=== PATIENT | male | born 1970 | race Caucasian/White ===

== ENCOUNTER 2016-12-11 11:51 | Inpatient (IN) | payer MEDICAID ==
[~2016-12-11] VITALS: Ht 175.3 cm; Wt 82.0 kg
[~2016-12-11 11:51] MED LIST: ADVAI100I PO; ALBU1AER INH; LANTUSP SQ; LISI2.5T3 PO; NOVOLOGP2 SQ
[2016-12-11 11:55] VITALS: BP 175/85; PULSE 104; RESP 18; O2SAT 92
--- NOTE | 2016-12-11 12:13 | PD ---
HPI Chief Complaint: Respiratory Distress Time Seen by Provider: 12:01 Travel History International Travel<30 days: No Contact w/Intl Traveler<30days: No Traveled to known affect area: No History of Present Illness HPI 46yo M with PMH of type 1 DM, HTN presents to the ED with c/o sob for 5 days. Associated with coughing and had fever 101F 3 days ago. Pt also states he is nauseous and has abdominal pain distension. States he has not had a bowel movement in 3 days and only started passing gas. Denies any chest pain, vomiting, testicular pain, dysuria, penile discharge or rash. States he always has lower extremity edema. Went to PMD's office today and sent here. Pt was a former smoker and used to use advair but said did not need it for over 1.5 years. Denies any history of PE, DVT, recent travel, recent surgery. PSH include appendectomy. PFSH Past Medical History Diabetes: Yes Patient Takes Glucophage: No Past Surgical History Appendectomy: Yes Social History Alcohol Use: No Tobacco Use: Yes Substance Use: No Allergies-Medications (Allergen,Severity, Reaction): Coded Allergies: penicillin G (Unverified Adverse Reaction, Severe, WELTS, 11/19/16) Reported Meds & Prescriptions Reported Meds & Active Scripts Active Reported Lutein Unknown Strength Cap 1 Cap PO DAILY Amlodipine (Amlodipine Besylate) 5 Mg Tab 5 Mg PO DAILY Omeprazole 20 Mg Tab 40 Mg PO DAILY Gabapentin 600 Mg Tab 600 Mg PO TID Hydrochlorothiazide 25 Mg Tab 25 Mg PO DAILY Lantus Inj (Insulin Glargine) 1,000 Unit/10 Ml Vial 40 Units SQ HS Novolog Inj (Insulin Aspart) 100 Unit/Ml Inj 30 Units SQ TIDAC Review of Systems Except as stated in HPI: all other systems reviewed are Neg Physical Exam Narrative GENERAL: 46yo M in moderate distress. SKIN: Focused skin assessment warm/dry. HEAD: Atraumatic. Normocephalic. EYES: Pupils equal and round. No scleral icterus. No injection or drainage. ENT: No nasal bleeding or discharge. Mucous membranes pink and moist. NECK: Trachea midline. No JVD. CARDIOVASCULAR: Tachycardic. No murmur appreciated. RESPIRATORY: + accessory muscle use. Clear to auscultation. Breath sounds equal bilaterally. Hypoxic in the 80s on RA. GASTROINTESTINAL: Abdomen softly distended. +Epigastric, RUQ, RLQ. MUSCULOSKELETAL: No obvious deformities. No clubbing. No cyanosis. No edema. NEUROLOGICAL: Awake and alert. No obvious cranial nerve deficits. Motor grossly within normal limits. Normal speech. PSYCHIATRIC: Appropriate mood and affect; insight and judgment normal. Data Data Last Documented VS Vital Signs Date Time Temp Pulse Resp B/P (MAP) Pulse Ox O2 Delivery O2 Flow Rate FiO2 12/11/16 12:04 95 Nasal Cannula 4.00 12/11/16 12:02 96 22 12/11/16 11:55 175/85 (115) Orders Orders Complete Blood Count With Diff (12/11/16 12:02) Basic Metabolic Panel (Bmp) (12/11/16 12:02) B-Type Natriuretic Peptide (12/11/16 12:02) Act Partial Throm Time (Ptt) (12/11/16 12:02) Prothrombin Time / Inr (Pt) (12/11/16 12:02) Troponin I (12/11/16 12:02) Arterial Blood Gas (Abg) (12/11/16 12:02) Urinalysis - C+S If Indicated (12/11/16 12:02) Blood Culture (12/11/16 12:02) Iv Access Insert/Monitor (12/11/16 12:02) Electrocardiogram (12/11/16 12:02) Ecg Monitoring (12/11/16 12:02) Oximetry (12/11/16 12:02) Oxygen Administration (12/11/16 12:02) Chest, Single Ap (12/11/16 12:02) Sodium Chloride 0.9% Flush (Ns Flush) (12/11/16 12:15) Lactic Acid Sepsis Protocol (12/11/16 12:03) Methylprednisolone So Succ Inj (Solumedr (12/11/16 12:15) Albuterol-Ipratropium Neb (Duoneb Neb) (12/11/16 12:15) Hepatic Functional Panel (12/11/16 12:15) Lipase (12/11/16 12:15) Ct Abd/Pel W/O Iv Contrast (12/11/16 ) Furosemide Inj (Lasix Inj) (12/11/16 13:45) Potassium Chloride (Kcl) (12/11/16 13:45) Echo 2d Comp With Doppler (12/11/16 ) Consult Cardiology (12/11/16 ) Admit Order (Ed Use Only) (12/11/16 13:56) Labs Laboratory Tests Test 12/11/16 12:15 12/11/16 12:25 White Blood Count 12.1 TH/MM3 Red Blood Count 2.70 MIL/MM3 Hemoglobin 8.7 GM/DL Hematocrit 24.9 % Mean Corpuscular Volume 92.0 FL Mean Corpuscular Hemoglobin 32.1 PG Mean Corpuscular Hemoglobin Concent 34.9 % Red Cell Distribution Width 12.3 % Platelet Count 300 TH/MM3 Mean Platelet Volume 9.1 FL Neutrophils (%) (Auto) 76.6 % Lymphocytes (%) (Auto) 10.0 % Monocytes (%) (Auto) 8.4 % Eosinophils (%) (Auto) 4.3 % Basophils (%) (Auto) 0.7 % Neutrophils # (Auto) 9.3 TH/MM3 Lymphocytes # (Auto) 1.2 TH/MM3 Monocytes # (Auto) 1.0 TH/MM3 Eosinophils # (Auto) 0.5 TH/MM3 Basophils # (Auto) 0.1 TH/MM3 CBC Comment DIFF FINAL Differential Comment Prothrombin Time 9.7 SEC Prothromb Time International Ratio 0.9 RATIO Activated Partial Thromboplast Time 30.5 SEC Blood Urea Nitrogen 76 MG/DL Creatinine 5.32 MG/DL Random Glucose 170 MG/DL Total Protein 7.4 GM/DL Albumin 2.5 GM/DL Calcium Level 8.8 MG/DL Alkaline Phosphatase 84 U/L Aspartate Amino Transf (AST/SGOT) 19 U/L Alanine Aminotransferase (ALT/SGPT) 37 U/L Total Bilirubin 0.3 MG/DL Direct Bilirubin 0.1 MG/DL Sodium Level 131 MEQ/L Potassium Level 3.4 MEQ/L Chloride Level 98 MEQ/L Carbon Dioxide Level 20.9 MEQ/L Anion Gap 12 MEQ/L Estimat Glomerular Filtration Rate 12 ML/MIN Lactic Acid Level 1.0 mmol/L Indirect Bilirubin 0.2 MG/DL Troponin I 2.04 NG/ML B-Type Natriuretic Peptide 1053 PG/ML Lipase 135 U/L Blood Gas Puncture Site RT RADIAL Blood Gas Patient Temperature 98.6 Blood Gas HCO3 19 mmol/L Blood Gas Base Excess -5.3 mmol/L Blood Gas Oxygen Saturation 90 % Arterial Blood pH 7.35 Arterial Blood Partial Pressure CO2 36 mmHg Arterial Blood Partial Pressure O2 68 mmHG Arterial Blood Oxygen Content 10.1 Vol % Arterial Blood Carboxyhemoglobin 2.1 % Arterial Blood Methemoglobin 0.9 % Blood Gas Hemoglobin 7.9 G/DL Oxygen Delivery Device NASAL CANNULA Blood Gas Liter Flow 4 L/M MDM Medical Decision Making Medical Screen Exam Complete: Yes Emergency Medical Condition: Yes Interpretation(s) EKG: NSR 93bpm. Normal axis. ST depression diffusely. Differential Diagnosis Pneumonia vs. ACS vs. PE vs. COPD exacerbation vs. CHF Narrative Course 46yo M with type 1 DM and HTN here with c/o sob for a few days. Pt arrived and is hypoxic saturating in the 80s on room air. Pt saturating 93-94% on 4 L NC. Labs reviewed, mild leukocytosis at 12.1. H/H low at 8.7/24.9. No prior to compare. Troponin is elevated at 2.04. Pt has no chest pain. BNP elevated at 1053. Discussed with principal planner Dr. Bill who agrees with lasix. Pt states he feels better on the 4L and does not want BIPAP at this time. Lactic acid normal at 1.0. BUN/creatinine elevated at 76/5.32. Pt denies prior history of renal failure and has no prior lab to compare to. States he last urinated at 10 :30am. Discussed with dental floss packer Dr. Bess who will come evaluate the patient. Discussed with electroplater automatic Dr. Verdugo who accepted pt to his service. CTa/p showed moderately large bilateral pleural effusions. Kidneys are normal. CXR showed mild cardiomegaly and pulmonary edema. Critical Care Narrative Aggregate critical care time was 60 minutes. Time to perform other separately billable procedures was not included in the critical care time. My time did not include minutes spent treating any other patients simultaneously or on activities that did not directly contribute to the patient's treatment. The services I provided to this patient were to treat and/or prevent clinically significant deterioration that could result in: cardiovascular collapse or . I provided critical care services requiring my management, as noted below: Chart data review, documentation time, medication orders and management, vital sign assessments/reviewing monitor data, ordering and reviewing lab tests, ordering and interpreting/reviewing x-rays and diagnostic studies, care of the patient and discussion of the patient with the admitting physicians. Diagnosis Primary Impression: Acute renal failure Qualified Codes: N17.9 - Acute kidney failure, unspecified Additional Impression: CHF (congestive heart failure) Qualified Codes: I50.9 - Heart failure, unspecified Admitting Information Admitting Physician Requests: Shobha Calero DO Dec 11, 2016 12:13
[2016-12-11] MEDS ORDERED: methylPREDNISolone SOD SUCC 125 MG/2 ML VIAL IVP ONE (12:15)
[2016-12-11] MEDS ORDERED: SODIUM CHLORIDE 0.9% FLUSH 10 ML FLUSH IVF PRN (12:15)
[2016-12-11] MEDS: RESP: ALBUTEROL 2.5 MG/IPRATROPIUM 0.5 MG NEB (SCH) INH (12:28)
[2016-12-11 12:35] LABS: BLOOD GAS BASE EXCESS -5.3 mmol/L (-2-2); BLOOD GAS CARBOXYHEMOGLOBIN 2.1 % (0-4); BLOOD GAS HCO3 19 mmol/L (22-26); BLOOD GAS METHEMOGLOBIN 0.9 % (0-2); BLOOD GAS O2 HGB SATURATION 90 % (90-100); BLOOD GAS OXYGEN CONTENT 10.1 Vol % (12.0-20.0); BLOOD GAS PCO2 36 mmHg (38-42); BLOOD GAS PO2 68 mmHG (61-120); BLOOD GAS TOTAL HGB 7.9 G/DL (12.0-16.0); CRITICAL VALUE NO; OXYGEN DEVICE NASAL CANNULA; TEMP CORR TO 98.6
[2016-12-11 12:36] LABS: DRAW SITE RT RADIAL; LITER FLOW 4 L/M; NUMBER OF ARTERIAL PUNCTURES 1; STAT YES; ULNAR PULSE PRESENT
[2016-12-11 12:45] LABS: APTT (PATIENT) 30.5 SEC (24.3-30.1); INTERNATIONAL NORMALIZED RATIO 0.9 RATIO; PROTHROMBIN TIME - PATIENT 9.7 SEC (9.8-11.6)
[2016-12-11 12:53] LABS: AUTOMATED NEUTROPHIL # 9.3 TH/MM3 (1.8-7.7); BASOPHIL # 0.1 TH/MM3 (0-0.2); BASOPHIL % 0.7 % (0.0-2.0); EOSINOPHIL # 0.5 TH/MM3 (0-0.4); EOSINOPHIL % 4.3 % (0.0-4.0); HEMATOCRIT 24.9 % (39.0-51.0); HEMO FLAGS DIFF FINAL; LYMPHOCYTE # 1.2 TH/MM3 (1.0-4.8); MEAN CORPUSCULAR HEMOGLOBIN 32.1 PG (27.0-34.0); MEAN CORPUSCULAR HGB CONC 34.9 % (32.0-36.0); MONO % 8.4 % (0.0-8.0); NEUT % 76.6 % (16.0-70.0); PLATELET COUNT 300 TH/MM3 (150-450); RED CELL DISTRIBUTION WIDTH 12.3 % (11.6-17.2); WHITE BLOOD COUNT 12.1 TH/MM3 (4.0-11.0)
[2016-12-11 12:54] LABS: BICARBONATE 20.9 MEQ/L (21.0-32.0); POTASSIUM 3.4 MEQ/L (3.5-5.1)
[2016-12-11 12:58] LABS: INDIRECT BILIRUBIN 0.2 MG/DL (0.0-0.8); TOTAL BILIRUBIN ADULT 0.3 MG/DL (0.2-1.0)
--- NOTE | 2016-12-11 12:58 | RADRPT ---
EXAM DATE/TIME: 12/11/2016 12:12 [facility] COMPARISON: No previous studies available for comparison. INDICATIONS : Short of breath. Pt. complains of difficulty breathing and had a fever for a few days. MEDICAL HISTORY : None. SURGICAL HISTORY : None. ENCOUNTER: Initial ACUITY: 4 - 6 days PAIN SCORE: 0/10 LOCATION: Bilateral chest FINDINGS: Bibasilar patchiness is noted consistent with infiltrate and/or pulmonary edema. Clinical correlatio n is recommended. The heart is mildly prominent. CONCLUSION: 1. Bibasilar patchiness consistent with infiltrate and/or pulmonary edema. Clinical correlation is recommended. 2. Mild cardiomegaly. Rui Garduno MD on December 11, 2016 at 12:54 Board Certified Radiologist. This report was verified electronically.
[2016-12-11] MEDS ORDERED: FUROSEMIDE 40 MG/4 ML VIAL IV PUSH ONE (13:45)
[2016-12-11] MEDS ORDERED: POTASSIUM CHLORIDE 20 MEQ CONTROLLED RELEASE TAB PO ONE (13:45)
[2016-12-11] MEDS ORDERED: MAGNESIUM HYDROXIDE SUSP 30 ML CUP PO PRN (14:00)
[2016-12-11] MEDS ORDERED: BISACODYL 10 MG SUPP RECTAL PRN (14:00)
[2016-12-11] MEDS ORDERED: LACTULOSE SYRUP 20 GM/30 ML CUP PO PRN (14:00)
[2016-12-11] MEDS ORDERED: RESP: ALBUTEROL 2.5 MG/IPRATROPIUM 0.5 MG NEB (PRN) INH (14:00)
[2016-12-11] MEDS ORDERED: MISCELLANEOUS NURSING INFORMATION XX SCH (14:00)
[2016-12-11] MEDS ORDERED: CHLORHEXIDINE GLUCONATE 2 % 1 PACK (2 CLOTHS) TOP PRN (14:00)
[2016-12-11] MEDS ORDERED: SENNOSIDES 8.6 MG TAB PO PRN (14:00)
[2016-12-11] MEDS ORDERED: FUROSEMIDE 100 MG/10 ML VIAL IV PUSH ONE (14:30)
--- NOTE | 2016-12-11 14:35 | RADRPT ---
EXAM DATE/TIME: 12/11/2016 13:44 [facility] COMPARISON: No previous studies available for comparison. INDICATIONS : Abdominal pain and distention. ORAL CONTRAST: No oral contrast ingested. RADIATION DOSE: 9.96 CTDIvol (mGy) MEDICAL HISTORY : Diabetes mellitus type 2. SURGICAL HISTORY : None. ENCOUNTER: Initial ACUITY: 1 day PAIN SCALE: 7/10 LOCATION: diffuse abdomen. TECHNIQUE: Volumetric scanning of the abdomen and pelvis was performed. Using automated exposure control and ad justment of the mA and/or kV according to patient size, radiation dose was kept as low as reasonably achievable to obtain optimal diagnostic quality images. DICOM format image data is available electro nically for review and comparison. FINDINGS: LOWER LUNGS: Moderate-sized bilateral pleural effusions measure up to 5 cm. There is associated compressive atele ctasis of the lower lungs. LIVER: Homogeneous density without lesion for noncontrast technique. There is no dilation of the biliary tr ee. No calcified gallstones. SPLEEN: Normal size without lesion. PANCREAS: Within normal limits. KIDNEYS: Normal in size and shape. There is no mass, stone, or hydronephrosis. ADRENAL GLANDS: Within normal limits. VASCULAR: There is no aortic aneurysm. BOWEL/MESENTERY: No dilated loops of small or large bowel. No evidence of free fluid." Adjacent to the cecum suggest s prior appendectomy. ABDOMINAL WALL: Within normal limits. RETROPERITONEUM: There is no lymphadenopathy. Retroaortic left renal vein. BLADDER: No wall thickening or mass. REPRODUCTIVE: Within normal limits. INGUINAL: There is no lymphadenopathy or hernia. MUSCULOSKELETAL: Within normal limits for patient age. CONCLUSION: Moderately large bilateral pleural effusions and compressive atelectasis lower lungs. John Maya MD on December 11, 2016 at 14:30 Board Certified Radiologist. This report was verified electronically.
--- NOTE | 2016-12-11 14:41 | PD.CONS ---
[facility] Service Nephrology Consult Requested By Dr. Verdugo Reason for Consult [facility] Primary Care Physician Meyr Antony MD History of Present Illness Patient is a 46 year old male with history of insulin-dependent diabetes since age 20, currently on Lantus insulin 40 units at night and Humalog he stated that he developed increasing shortness of breath since last week went to see the physician in today he was advised to come to the emergency, he has not passed urine since this morning he has stated that only a few drops of urine came out when he tried, his creatinine is 5.32 there are no old records to compare, patient gives no history of kidney disease in the past states that he has seen a physician 1 week ago. Review of Systems Constitutional: COMPLAINS OF: Fatigue Respiratory: COMPLAINS OF: Shortness of breath Cardiovascular: COMPLAINS OF: Dyspnea on Exertion, Lower Extremity Edema Musculoskeletal: COMPLAINS OF: Joint pain Past Family Social History Allergies: Coded Allergies: penicillin G (Unverified Adverse Reaction, Severe, WELJASON, 11/19/16) Past Medical History Insulin-dependent diabetes, Hypertension Past Surgical History Appendectomy Reported Medications Reported Meds & Active Scripts Active Reported Proair Hfa (Albuterol Sulfate) 8.5 Gm Aero 0 INH BID PRN UNKNOWN DOSE Advair Diskus 100/50 (Salmeterol Xinafoate/Fluticasone) Salmeterol/Fluticasone 50/100mcg Inh 1 Inhalation PO BID PRN Lisinopril 2.5 Mg Tab Unknown Dose PO DAILY Lantus (Insulin Glargine) 100 Units/Ml Inj 40 Units SQ HS Novolog (Insulin Aspart) 100 Units/Ml Inj Unknown Dose SQ DIRECTED Active Ordered Medications Current Medications Medications (Trade) Dose Ordered Sig/Tammy Route Start Time Stop Time Status Last Admin (NS Flush) 2 ml UNSCH PRN IVF 12/11/16 12:15 (Protonix Inj) 40 mg DAILY IV 12/12/16 09:00 (Duoneb Neb) 1 ampule Q2HR NEB PRN INH 12/11/16 14:00 Miscellaneous Information 1 Q361D XX 12/11/16 14:00 (Chlorhexidine 2% Cloth) 3 pack Taper DAILY@04 TOP 12/12/16 04:00 12/08/17 03:59 (Chlorhexidine 2% Cloth) 3 pack UNSCH PRN TOP 12/11/16 14:00 (Marie-Colace) 1 tab BID PO 12/11/16 21:00 (Milk Of Magnesia Liq) 30 ml Q12H PRN PO 12/11/16 14:00 (Senokot) 17.2 mg Q12H PRN PO 12/11/16 14:00 (Dulcolax Supp) 10 mg DAILY PRN RECTAL 12/11/16 14:00 (Lactulose Liq) 30 ml DAILY PRN PO 12/11/16 14:00 (Aspirin Chew) 81 mg DAILY CHEW 12/11/16 14:15 (Lasix Inj) 80 mg ONCE ONCE IV PUSH 12/11/16 14:30 12/11/16 14:31 UNV (Lasix Inj) 40 mg BID@,18 IV PUSH 12/12/16 09:00 UNV Family History Noncontributory Social History Admits to smoking Denies alcohol use Physical Exam Vital Signs Vital Signs Date Time Temp Pulse Resp B/P (MAP) Pulse Ox O2 Delivery O2 Flow Rate FiO2 12/11/16 12:04 95 Nasal Cannula 4.00 12/11/16 12:02 96 22 95 Nasal Cannula 4.00 12/11/16 11:55 104 18 175/85 (115) 92 Physical Exam GENERAL: Well-nourished, well-developed patient. SKIN: Warm and dry. HEAD: Normocephalic. EYES: No scleral icterus. No injection or drainage. NECK: Supple, trachea midline. No JVD or lymphadenopathy. CARDIOVASCULAR: Regular rate and rhythm without murmurs, gallops, or rubs. RESPIRATORY: Breath sounds diminished at bases with fine crepitations GASTROINTESTINAL: Abdomen soft, non-tender, nondistended. EXTREMITIES: No cyanosis, or edema. NEUROLOGICAL: Awake, alert, and oriented x 3. Non-focal. Laboratory Laboratory Tests Test 12/11/16 12:15 12/11/16 12:25 White Blood Count 12.1 Red Blood Count 2.70 Hemoglobin 8.7 Hematocrit 24.9 Mean Corpuscular Volume 92.0 Mean Corpuscular Hemoglobin 32.1 Mean Corpuscular Hemoglobin Concent 34.9 Red Cell Distribution Width 12.3 Platelet Count 300 Mean Platelet Volume 9.1 Neutrophils (%) (Auto) 76.6 Lymphocytes (%) (Auto) 10.0 Monocytes (%) (Auto) 8.4 Eosinophils (%) (Auto) 4.3 Basophils (%) (Auto) 0.7 Neutrophils # (Auto) 9.3 Lymphocytes # (Auto) 1.2 Monocytes # (Auto) 1.0 Eosinophils # (Auto) 0.5 Basophils # (Auto) 0.1 CBC Comment DIFF FINAL Differential Comment Prothrombin Time 9.7 Prothromb Time International Ratio 0.9 Activated Partial Thromboplast Time 30.5 Blood Urea Nitrogen 76 Creatinine 5.32 Random Glucose 170 Total Protein 7.4 Albumin 2.5 Calcium Level 8.8 Alkaline Phosphatase 84 Aspartate Amino Transf (AST/SGOT) 19 Alanine Aminotransferase (ALT/SGPT) 37 Total Bilirubin 0.3 Direct Bilirubin 0.1 Sodium Level 131 Potassium Level 3.4 Chloride Level 98 Carbon Dioxide Level 20.9 Anion Gap 12 Estimat Glomerular Filtration Rate 12 Lactic Acid Level 1.0 Indirect Bilirubin 0.2 Troponin I 2.04 B-Type Natriuretic Peptide 1053 Lipase 135 Blood Gas Puncture Site RT RADIAL Blood Gas Patient Temperature 98.6 Blood Gas HCO3 19 Blood Gas Base Excess -5.3 Blood Gas Oxygen Saturation 90 Arterial Blood pH 7.35 Arterial Blood Partial Pressure CO2 36 Arterial Blood Partial Pressure O2 68 Arterial Blood Oxygen Content 10.1 Arterial Blood Carboxyhemoglobin 2.1 Arterial Blood Methemoglobin 0.9 Blood Gas Hemoglobin 7.9 Oxygen Delivery Device NASAL CANNULA Blood Gas Liter Flow 4 Date/Time Source Procedure Growth Status 12/11/16 12:15 Blood Peripheral Aerobic Blood Culture Pending Received 12/11/16 12:15 Blood Peripheral Anaerobic Blood Culture Pending Received Result Diagram: 12/11/16 1215 12/11/16 1215 Assessment and Plan Problem List: (1) Acute renal failure ICD Codes: N17.9 - Acute kidney failure, unspecified Status: Acute Plan: Patient has no knowledge of kidney issues he was taking ibuprofen on an as-needed basis to 200 mg tablets every other day , He has advanced kidney disease with albumin level is low there is a component of chronic kidney disease due to diabetic nephropathy However he is not aware of renal failure I therefore chose to give him Lasix obtain a kidney ultrasound TANISHA C3-C4 urine proteins Hepatitis profile Follow electrolytes Avoid nephrotoxic agent (2) Diabetes ICD Codes: E11.9 - Type 2 diabetes mellitus without complications Plan: Continue to monitor blood glucose (3) CHF (congestive heart failure) ICD Codes: I50.9 - Heart failure, unspecified Plan: Lasix 80 mg IV ordered him on Lasix 40 mg every 12 hours and monitor intake and output and BMP Problem Qualifiers (1) Diabetes: Edmund Bess MD Dec 11, 2016 14:41
[2016-12-11] MEDS: ASPIRIN 81 MG CHEW TAB CHEW SCH (15:14)
--- NOTE | 2016-12-11 15:30 | RADRPT ---
EXAM DATE/TIME: 12/11/2016 14:33 [facility] COMPARISON: No previous studies available for comparison. INDICATIONS : Increased BUN/Creatnine. MEDICAL HISTORY : Diabetes. SURGICAL HISTORY : Appendectomy. ENCOUNTER: Initial ACUITY: 2 days PAIN SCORE: 2/10 LOCATION: Bilateral flank MEASUREMENTS: RIGHT KIDNEY: 11.4 x 5.2 x 6.7 cm LEFT KIDNEY: 12.0 x 5.4 x 6.6 cm FINDINGS: Right pleural effusion is present. RIGHT KIDNEY: Renal cortex is normal in thickness and echotexture. No hydronephrosis, stone, or mass. LEFT KIDNEY: Renal cortex is normal in thickness and echotexture. No hydronephrosis, stone, or mass. BLADDER: Within normal limits given the degree of distension. CONCLUSION: 1. Normal sonographic appearance the kidneys. 2. Right pleural effusion. John Maya MD on December 11, 2016 at 15:27 Board Certified Radiologist. This report was verified electronically.
[2016-12-11 15:31] LABS: BLOOD, URINE TRACE (NEG); COMMENT (UR) CULT NOT INDICATED; CULTURE IF INDICATED CULT NOT INDICATED; GLUCOSE,URINE 70 mg/dL (NEG); KETONE, URINE NEG (NEG); NITRITE,URINE NEG (NEG); SQUAMOUS EPITHELIAL CELL URINE <1 /hpf (0-5); URINE COLOR LIGHT-YELLOW (YELLW/STRAW)
--- NOTE | 2016-12-11 15:33 | ECHRPT ---
Indication: heart failure CONCLUSIONS Normal left ventricular size. Mild concentric left ventricular hypertrophy. The left ventricular systolic function is severely reduced with an estimated ejection fraction in th e range of 30-35%. Apical hypokinesis Trace mitral valve regurgitation. The estimated pulmonary arterial pressure is 30 mmHg. BP: / HR: Rhythm: Technical Quality:Good FINDINGS LEFT VENTRICLE Normal left ventricular size. Mild concentric left ventricular hypertrophy. The left ventricular systolic function is severely reduced with an estimated ejection fraction in th e range of 30-35%. RIGHT VENTRICLE Normal right ventricular size and systolic function. LEFT ATRIUM The left atrial size is normal. RIGHT ATRIUM The right atrial size is normal. ATRIAL SEPTUM Normal atrial septal thickness without atrial level shunting by limited color doppler interrogation. AORTA The aortic root and proximal ascending aorta are normal in size on limited imaging. MITRAL VALVE Trace mitral valve regurgitation. AORTIC VALVE Trileaflet aortic valve. No aortic valve stenosis or regurgitation. TRICUSPID VALVE The estimated pulmonary arterial pressure is 30 mmHg. PULMONARY VALVE The pulmonary valve is not well visualized. VESSELS The inferior vena cava is normal in size. PERICARDIUM No pericardial effusion. Alex Lewis MD (Electronically Signed) Final Date:11 December 2016 15:32
--- NOTE | 2016-12-11 16:22 | PD.PROCEDR ---
Procedure Note Procedure Procedure Notes: Thoracentesis Indication: Large right sided pleural effusion A time-out was completed verifying correct patient, procedure, site, positioning , and special equipment if applicable. The patients right side was prepped and draped in a sterile manner after the appropriate infiltration level was confirmed by ultrasound. 1% lidocaine was used anesthetize the surrounding skin. A 10-blade scalpel used to make the incision. The thoracentesis Angiocath was then introduced without difficulty and needle was removed. Catheter was connected to Vacutainer bottle and 1000 ml (1L) of blood tinged free flowing fluid was removed. A post-procedure chest x-ray was ordered and the fluid will be sent for several studies. Estimated Blood Loss: <2 ml The patient tolerated the procedure well and there were no immediate complications. Paulette Verdugo MD Dec 11, 2016 16:22
[2016-12-11] MEDS ORDERED: MORPHINE SULFATE 4 MG/ML INJ IV PUSH PRN (16:30)
[2016-12-11 16:34] VITALS: BP 160/89; PULSE 97; RESP 18; TEMP 98.2; O2SAT 94
--- NOTE | 2016-12-11 16:35 | HHI.HP ---
[facility] Service Critical Care Medicine Primary Care Physician Mery Antony MD Admission Diagnosis New onset CHF, acute kidney injury Diagnosis: (1) Acute systolic (congestive) heart failure Diagnosis: Principal (2) NSTEMI (non-ST elevated myocardial infarction) Diagnosis: Principal (3) Acute hypoxemic respiratory failure Diagnosis: Principal (4) Acute kidney failure Diagnosis: Principal (5) Sepsis Diagnosis: Principal (6) Large bilateral pleural effusions Diagnosis: Principal (7) Hypokalemia Diagnosis: Principal (8) Hyponatremia Diagnosis: Principal (9) Microcytic anemia Diagnosis: Secondary (10) Type 1 diabetes Diagnosis: Secondary (11) Ischemic cardiomyopathy Diagnosis: Secondary Chief Complaint: Severe shortness of breath, systolic heart failure NSTEMI Travel History International Travel<30 Days: No Contact w/Intl Traveler <30 Da: No Traveled to Known Affected Are: No Sepsis Criteria SIRS Criteria (2 or more): RR > 20 or PaCO2 < 32, WBC > 50764, < 4000 or > 10 % bands Sepsis Criteria (SIRS+source): Infect source susp/known Severe Sepsis (+one): Hypoperfusion, Acute Oliguria/Renal Failure Criteria Outcome: Meets severe sepsis criteria History of Present Illness Patient is a 46-year-old male with past medical history significant for type 1 diabetes, hypertension who presented to the emergency department with worsening shortness of breath for the last 5 days and subjective fever of 101 about 3 days ago, He was also complaining about abdominal pain and distention along with nausea. He initially went to his doctor's office and was referred to the emergency department. In the ED patient was hypoxic saturating in the 80s on room air, improved to 93% on 4 L NC. His lab work showed WBC count 12.1. H/H 8.7/24.9. Troponin is elevated at 2.04, BNP elevated at 1053. BUN/creatinine elevated at 76/5.32. CXR showed mild cardiomegaly and pulmonary edema. Critical care medicine was consulted for admission. Patient received 80 mg of Lasix in the ED. I evaluated the patient in the ED. He is in moderate respiratory distress using accessory muscles. I did a bedside echo which showed ejection fraction approximately 30-35%. Pleural ultrasound showed moderate to large bilateral pleural effusions. I have discussed with Dr. Bill, I will start patient on IV heparin, Coreg and aspirin. I performed a bedside thoracentesis on the right side with immediate improvement in clinical symptoms, and about 1 L of blood- tinged pleural fluid was removed. I also discussed with Dr. Bess. I will discontinue the scheduled Lasix and started on Bumex infusion, after post thoracentesis chest x-ray shows some worsening of pulmonary edema. Patient will need a cardiac catheterization once he is more stable from respiratory standpoint. We'll start patient on BiPAP to reduce his work of breathing Review of Systems ROS Limitations: Clinical Condition (tachypneic, hsort of breath limiting review of systems), Other Past Family Social History Allergies: Coded Allergies: penicillin G (Unverified Adverse Reaction, Severe, WELTS, 11/19/16) Past Medical History Type 1 diabetes Hypertension Past Surgical History History of appendectomy Reported Medications Proair Hfa (Albuterol Sulfate) 8.5 Gm Aero 0 INH BID PRN Advair Diskus 100/50 (Salmeterol Xinafoate/Fluticasone) Salmeterol/Fluticasone 50/100mcg Inh 1 Inhalation PO BID PRN Lisinopril 2.5 Mg Tab Unknown Dose PO DAILY Lantus (Insulin Glargine) 100 Units/Ml Inj 40 Units SQ HS Novolog (Insulin Aspart) 100 Units/Ml Inj Unknown Dose SQ DIRECTED Active Ordered Medications Reviewed Family History No history of diabetes Social History Quit smoking 1-1/2 years ago, denies alcohol intake Physical Exam Vital Signs Vital Signs Date Time Temp Pulse Resp B/P (MAP) Pulse Ox O2 Delivery O2 Flow Rate FiO2 12/11/16 12:04 95 Nasal Cannula 4.00 12/11/16 12:02 96 22 95 Nasal Cannula 4.00 12/11/16 11:55 104 18 175/85 (115) 92 Physical Exam GENERAL: in moderate to severe distress, using accessory muscle SKIN: Skin assessment warm/dry. HEAD: Atraumatic. Normocephalic. EYES: Pupils equal and round. No scleral icterus. ENT: No nasal bleeding or discharge. NECK: Trachea midline. No JVD. CARDIOVASCULAR: Tachycardic. No murmur appreciated. Bedside echo -EF 30-35% with apical WMA RESPIRATORY: Using accessory muscle use. Breath sounds equal bilaterally, tachypneic breathing and mid 30s. Currently markedly reduced in bilateral lower lung landin. Bedside ultrasound shows large bilateral pleural effusions GASTROINTESTINAL: Abdomen soft distended. Mild epigastric tenderness MUSCULOSKELETAL: No obvious deformities. No clubbing. NEUROLOGICAL: Awake and alert. No obvious cranial nerve deficits. Motor grossly within normal limits. Laboratory Laboratory Tests Test 12/11/16 12:15 12/11/16 12:25 12/11/16 15:01 White Blood Count 12.1 Red Blood Count 2.70 Hemoglobin 8.7 Hematocrit 24.9 Mean Corpuscular Volume 92.0 Mean Corpuscular Hemoglobin 32.1 Mean Corpuscular Hemoglobin Concent 34.9 Red Cell Distribution Width 12.3 Platelet Count 300 Mean Platelet Volume 9.1 Neutrophils (%) (Auto) 76.6 Lymphocytes (%) (Auto) 10.0 Monocytes (%) (Auto) 8.4 Eosinophils (%) (Auto) 4.3 Basophils (%) (Auto) 0.7 Neutrophils # (Auto) 9.3 Lymphocytes # (Auto) 1.2 Monocytes # (Auto) 1.0 Eosinophils # (Auto) 0.5 Basophils # (Auto) 0.1 CBC Comment DIFF FINAL Differential Comment Prothrombin Time 9.7 Prothromb Time International Ratio 0.9 Activated Partial Thromboplast Time 30.5 Blood Urea Nitrogen 76 Creatinine 5.32 Random Glucose 170 Total Protein 7.4 Albumin 2.5 Calcium Level 8.8 Alkaline Phosphatase 84 Aspartate Amino Transf (AST/SGOT) 19 Alanine Aminotransferase (ALT/SGPT) 37 Total Bilirubin 0.3 Direct Bilirubin 0.1 Sodium Level 131 Potassium Level 3.4 Chloride Level 98 Carbon Dioxide Level 20.9 Anion Gap 12 Estimat Glomerular Filtration Rate 12 Lactic Acid Level 1.0 Indirect Bilirubin 0.2 Troponin I 2.04 B-Type Natriuretic Peptide 1053 Lipase 135 Blood Gas Puncture Site RT RADIAL Blood Gas Patient Temperature 98.6 Blood Gas HCO3 19 Blood Gas Base Excess -5.3 Blood Gas Oxygen Saturation 90 Arterial Blood pH 7.35 Arterial Blood Partial Pressure CO2 36 Arterial Blood Partial Pressure O2 68 Arterial Blood Oxygen Content 10.1 Arterial Blood Carboxyhemoglobin 2.1 Arterial Blood Methemoglobin 0.9 Blood Gas Hemoglobin 7.9 Oxygen Delivery Device NASAL CANNULA Blood Gas Liter Flow 4 Urine Color LIGHT-YELLOW Urine Turbidity HAZY Urine pH 6.0 Urine Specific [place] 1.009 Urine Protein 300 Urine Glucose (UA) 70 Urine Ketones NEG Urine Occult Blood TRACE Urine Nitrite NEG Urine Bilirubin NEG Urine Urobilinogen LESS THAN 2.0 Urine Leukocyte Esterase NEG Urine RBC LESS THAN 1 Urine WBC 3 Urine Squamous Epithelial Cells <1 Microscopic Urinalysis Comment CULT NOT INDICATED Date/Time Source Procedure Growth Status 12/11/16 12:15 Blood Peripheral Aerobic Blood Culture Pending Received 12/11/16 12:15 Blood Peripheral Anaerobic Blood Culture Pending Received Result Diagram: 12/11/16 1215 12/11/16 1215 Imaging Chest x-ray shows bilateral pleural effusion and pulmonary edema Septic Shock Reassessment Heart: Regular rate and rhythm Lungs: Diminished Skin: Warm Peripheral Pulses: Bounding Right Radial Bounding Left Radial Caprini VTE Risk Assessment Caprini VTE Risk Assessment: Mod/High Risk (score >= 2) Caprini Risk Assessment Model Point Value = 1 Point Value = 2 Point Value = 3 Point Value = 5 Age 41-60 Minor surgery BMI > 25 kg/m2 Swollen legs Varicose veins or History of unexplained or recurrent spontaneous Oral contraceptives or hormone replacement Sepsis (< 1 month) Serious lung disease, including pneumonia (< 1 month) Abnormal pulmonary function Acute myocardial infarction Congestive heart failure (< 1 month) History of inflammatory bowel disease Medical patient at bed rest Age 61-74 Arthroscopic surgery Major open surgery (> 45 min) Laparoscopic surgery (> 45 min) Malignancy Confined to bed (> 72 hours) Immobilizing plaster cast Central venous access Age >= 75 History of VTE Family history of VTE Factor V Leiden Prothrombin [id number] Lupus anticoagulant Anticardiolipin antibodies Elevated serum homocysteine Heparin-induced thrombocytopenia Other congenital or acquired thrombophilia Stroke (< 1 month) Elective arthroplasty Hip, pelvis, or leg fracture Acute spinal cord injury (< 1 month) Prophylaxis Regimen Total Risk Factor Score Risk Level Prophylaxis Regimen 0-1 Low Early ambulation 2 Moderate Order ONE of the following: *Sequential Compression Device (SCD) *Heparin 5000 units SQ BID 3-4 Higher Order ONE of the following medications: *Heparin 5000 units SQ TID *Enoxaparin/Lovenox 40 mg SQ daily (WT < 150 kg, CrCl > 30 mL/min) *Enoxaparin/Lovenox 30 mg SQ daily (WT < 150 kg, CrCl > 10-29 mL/min) *Enoxaparin/Lovenox 30 mg SQ BID (WT < 150 kg, CrCl > 30 mL/min) AND/OR *Sequential Compression Device (SCD) 5 or more Highest Order ONE of the following medications: *Heparin 5000 units SQ TID (Preferred with Epidurals) *Enoxaparin/Lovenox 40 mg SQ daily (WT < 150 kg, CrCl > 30 mL/min) *Enoxaparin/Lovenox 30 mg SQ daily (WT < 150 kg, CrCl > 10-29 mL/min) *Enoxaparin/Lovenox 30 mg SQ BID (WT < 150 kg, CrCl > 30 mL/min) AND *Sequential Compression Device (SCD) Assessment and Plan Assessment and Plan NEURO: - As needed morphine for pain and anxiety RESP: Acute hypoxemic respiratory failure Bilateral large effusions Possible pneumonia COPD - I performed a bedside right thoracentesis and removed 1 L of blood-tinged fluid. Fluid studies pending - Initiate BiPAP 10 over 5 - DuoNeb every 6 hours scheduled and when necessary - Received 1 dose of Solu-Medrol 60 mg 1, place on scheduled 40 every 12 - Place on Symbicort - Broad-spectrum antibiotics with Azactam and azithromycin for possible pneumonia CV: Acute NSTEMI Acute systolic heart failure Ischemic cardiomyopathy - Received 80 mg IV Lasix in ED. DC scheduled Lasix - Start Bumex infusion at 1 mg per hour - Placed on IV heparin, aspirin, Coreg. Cannot use MELECIO inhibitor due to acute renal failure - Discussed with Dr. Bill, probable cardiac catheter in 1-2 days - Echo showed EF 25-30%,apical wall motion abnormality GI: - 1999 ADA, renal diet. IV Protonix : Acute kidney failure - Monitor renal function closely. Place Queen catheter. - DC IV Lasix. Started on Bumex gtt - Nephrology Dr. Bess following, renal ultrasound did not show any evidence of chronic disease ID: Sepsis - Blood cultures sent. Azactam and azithromycin to cover empirically for pneumonia HEME: Microcytic anemia - Monitor CBC, CMP, coags - On IV Heparin ENDO: Type 1 diabetes - Patient takes 40 units of Lantus at bedtime and NovoLog sliding scale - Due to renal failure I placed him on reduced dose of insulin 20 units of Levemir, and pre meal NovoLog with SSI PROPH: - Bilateral lower extremity SCDs. IV Heparin. IV Protonix LINES: - Utilize peripheral IVs, central line if needed CC time 82 min, excluding procedures Patient is critically ill with new onset acute congestive heart failure last elevation MN and ischemic cardiomyopathy. His presentation is complicated by acute hypoxemic respiratory failure and pulmonary edema, acute renal failure making it difficult to diurese adequately. Patient may need endotracheal intubation and mechanical ventilation, hemodialysis and cardiac catheterization Code Status Full Discussed Condition With Drs. Bill and Maria Alejandra Problem Qualifiers (1) Acute kidney failure: Qualified Codes: N17.9 - Acute kidney failure, unspecified (2) Sepsis: Qualified Codes: A41.9 - Sepsis, unspecified organism (3) Type 1 diabetes: Qualified Codes: E10.8 - Type 1 diabetes mellitus with unspecified complications Paulette Verdugo MD Dec 11, 2016 16:35
--- NOTE | 2016-12-11 16:40 | RADRPT ---
EXAM DATE/TIME: 12/11/2016 16:28 [facility] COMPARISON: CHEST SINGLE AP, December 11, 2016, 12:12. INDICATIONS : Post right side thoracentesis. MEDICAL HISTORY : Diabetes mellitus type II. SURGICAL HISTORY : None. ENCOUNTER: Initial ACUITY: 1 day PAIN SCORE: 0/10 LOCATION: Right chest FINDINGS: There has been interval worsening of the bilateral pulmonary infiltrates consistent with worsening pu lmonary edema versus pneumonia. Clinical correlation is recommended. The heart is stable. CONCLUSION: Worsening bilateral pulmonary infiltrates consistent with worsening pulmonary edema versus pneumonia. Clinical correlation is recommended. Rui Garduno MD on December 11, 2016 at 16:36 Board Certified Radiologist. This report was verified electronically.
--- NOTE | 2016-12-11 16:53 | MB ---
cc: DIDI PATRICK DATE OF CONSULTATION 12/11/2016 DATE OF 1970 REASON FOR CONSULTATION Shortness of breath, elevated troponins. History of present illness 46-year-old male with past medical history significant for insulin dependent diabetes mellitus uncontrolled, hypertension that presented to the hospital with increased shortness of breath since last week. He reports easy fatigability, shortness of breath on minimal exertion and low urine output. On further evaluation in the emergency department he was with low O2 oxygen saturations, anemic with a hemoglobin of 8.7, acute kidney injury with a creatinine of 5.3, significant amount of protein in the urine and elevated troponins of 2.0 and BNP of 1053. EKG normal sinus rhythm with nonspecific ST changes. Cardiology has been consulted given elevated troponins as well as BNP. The patient denies any chest pain, palpitations, syncope, PND. He does reports recent onset of chills however, no fever. REVIEW OF SYSTEMS Negative except for what is mentioned in HPI. PAST MEDICAL HISTORY 1. Hypertension. 2. Insulin-dependent diabetes mellitus. ALLERGIES PENICILLIN. PAST SURGICAL HISTORY Appendectomy. MEDICATIONS Home medications: 1. ProAir. 2. Advair Diskus. 3. Lisinopril 2.5 mg p.o. daily. 4. Lantus. 5. NovoLog. FAMILY HISTORY No history of premature coronary artery disease. SOCIAL HISTORY He was a former smoker. Denies alcohol use or illicit drug use. PHYSICAL EXAMINATION VITAL SIGNS: Temperature 97, heart rate 96, blood pressure 175/85, O2 sats 95% on 4 liters nasal cannula. GENERAL: He is awake and alert and oriented times three in no acute distress. NECK: Positive JVD. HEART: Regular rate and rhythm. No murmurs, rubs, or gallops. LUNGS: Bilateral rales. ABDOMEN: Positive bowel sounds, soft, nontender, nondistended. EXTREMITIES: Mild edema +1, pulses throughout. LABORATORY DATA CBC hemoglobin 8.7, hematocrit 24, platelet count 300. INR 0.9. Chemistries, sodium 131, potassium 3.4, BUN 76, creatinine 5.32. Troponin 2.04. BNP 1053. Albumin 2.5. Urinalysis is hazy. There is more than 300 protein in the urine as well as glucose and trace occult blood. IMAGING Ultrasound of the kidneys unremarkable. Abdominal CT scan there is bilateral pleural effusions and atelectasis. Chest x-ray there are effusions, signs of pulmonary edema. Echocardiogram shows a low ejection fraction with an estimated EF in the 30-35 range with hypokinesis in the apical wall. ASSESSMENT/PLAN 46-year-old male with diabetes, acute on chronic kidney disease, proteinuria admitted with shortness of breath. The patient remains afebrile and hemodynamically stable. He has elevated troponins, EKG with no acute ST-T segment changes. His echo shows new onset LV systolic dysfunction. Given his risk factors and low EF the patient should have an invasive evaluation such as left heart cath of his coronaries. However, given severe anemia and acute kidney injury at this point, the risks of complications outweigh the benefits at this time. Thus, I would recommend aggressive medical therapy for CAD, blood pressure control with beta-blockers, MELECIO inhibitors, continue IV diuresis. Nephrology following agree with recommendations. Thank you for the opportunity to take part in the care of this patient. The case has been discussed with Dr. Verdugo. Further therapy to be determined. MD DAVID Cameron/FERNIE /3:50 PM /4:19 PM MTDNae
[2016-12-11] MEDS ORDERED: OMEP20TA PO (16:59)
[2016-12-11] MEDS ORDERED: LUTE6CAP2 PO (16:59)
[2016-12-11] MEDS ORDERED: NOVOLOGSS SQ (16:59)
[2016-12-11] MEDS ORDERED: LANTUS2P SQ (16:59)
[2016-12-11] MEDS ORDERED: HYDR25TA5 PO (16:59)
[2016-12-11] MEDS ORDERED: GABA600T PO (16:59)
[2016-12-11] MEDS ORDERED: AMLO5TAB2 PO (16:59)
[2016-12-11] MEDS: RESP: ALBUTEROL 2.5 MG/IPRATROPIUM 0.5 MG NEB (SCH) NEB ×2 (16:59→21:13)
[2016-12-11] MEDS: AZITHROMYCIN INJ 500 MG in SODIUM CHLOR 0.9% 250 ML INJ 250 ML IV SCH (17:00)
[2016-12-11] MEDS ORDERED: BUMETANIDE INJ 100 ML IV SCH (17:00)
[2016-12-11] MEDS ORDERED: DEXTROSE 50% IN WATER 50 ML VIAL(D50) IV PUSH PRN (17:15)
[2016-12-11] MEDS ORDERED: GLUCAGON 1 MG/ML VIAL OTHER PRN (17:15)
[2016-12-11] MEDS ORDERED: MISC INFORMATION XX ONE (17:30)
[2016-12-11] MEDS ORDERED: ONDANSETRON HCL 4 MG/2 ML VIAL IV PRN (17:30)
[2016-12-11] MEDS ORDERED: ATROPINE SULFATE 1 MG/ML VIAL IV PRN (17:30)
[2016-12-11 18:07] LABS: TOTAL PROTEIN,PLEURAL FLUID 1.6 GM/DL
[2016-12-11 18:13] LABS: PLEURAL FLUID LYMPHS 16 %
[2016-12-11] MEDS: AZTREONAM INJ 1,000 MG in SODIUM CHLORIDE 0.9% INJ 100 ML IV SCH (18:16)
[2016-12-11] MEDS: INSULIN ASPART SUPPLEMENTAL SCALE SQ SCH ×3 (18:33→23:00)
[2016-12-11 18:35] VITALS: BP 145/75; PULSE 105; RESP 16; TEMP 98.3; O2SAT 97
[2016-12-11 19:44] VITALS: BP 153/81; PULSE 100; RESP 20; TEMP 98; O2SAT 95
[2016-12-11 20:00] VITALS: BP 138/75; PULSE 104; RESP 18; TEMP 98.4; O2SAT 96
[2016-12-11] MEDS: INSULIN ASPART 1,000 UNITS/10 ML VIAL SQ SCH (21:00)
[2016-12-11] MEDS: INSULIN DETEMIR 100 UNITS/ML VIAL SQ SCH (21:00)
[2016-12-11] MEDS: CARVEDILOL 6.25 MG TAB PO SCH (21:27)
[2016-12-11] MEDS: DOCUSATE SODIUM 50 MG/SENNA 8.6 MG TAB PO SCH (21:27)
[2016-12-11 22:00] VITALS: PULSE 96
[2016-12-11 23:16] LABS: HEMATOCRIT 24.1 % (39.0-51.0); MEAN CELL VOLUME 90.7 FL (80.0-100.0); MEAN CORPUSCULAR HEMOGLOBIN 32.5 PG (27.0-34.0); MEAN CORPUSCULAR HGB CONC 35.8 % (32.0-36.0); PLATELET COUNT 272 TH/MM3 (150-450); RED BLOOD COUNT 2.66 MIL/MM3 (4.50-5.90); RED CELL DISTRIBUTION WIDTH 12.2 % (11.6-17.2); REVIEW FLAG FINAL; WHITE BLOOD COUNT 10.2 TH/MM3 (4.0-11.0)
[2016-12-11 23:32] LABS: APTT (PATIENT) 28.2 SEC (24.3-30.1)
[2016-12-11] MEDS: HEPARIN-D5W 25,000 U/250 ML 250 ML IV PRN (23:49)
[2016-12-11 23:59] LABS: ALT (GPT) 32 U/L (12-78); ANION GAP 11 MEQ/L (5-15); AST (GOT) 9 U/L (15-37); BICARBONATE 22.2 MEQ/L (21.0-32.0); BLOOD UREA NITROGEN 82 MG/DL (7-18); CHLORIDE 98 MEQ/L (98-107); GLOMERULAR FILTRATION RATE 12 ML/MIN (>89); SODIUM (NA) 131 MEQ/L (136-145)
[2016-12-12] VITALS (18 sets, daily range): BP systolic 116–152; BP diastolic 69–83; PULSE 20–92; RESP 16–20; TEMP 98–98.4; O2SAT 94–100
[2016-12-12] LABS: TRANSFERRIN IRON PROFILE 194 MG/DL (200-360)
[2016-12-12 00:05] LABS: ALKALINE PHOSPHATASE 77 U/L (45-117); TOTAL BILIRUBIN ADULT 0.2 MG/DL (0.2-1.0)
[2016-12-12] MEDS: BUDESONIDE-FORMOTEROL 160/4.5 MCG INHALER INH SCH ×3 (01:20→21:19)
[2016-12-12] MEDS: AZTREONAM INJ 1,000 MG in SODIUM CHLORIDE 0.9% INJ 100 ML IV SCH ×2 (01:21→04:23)
[2016-12-12] MEDS: INSULIN ASPART SUPPLEMENTAL SCALE SQ SCH ×7 (02:00→21:00)
[2016-12-12] MEDS: RESP: ALBUTEROL 2.5 MG/IPRATROPIUM 0.5 MG NEB (SCH) NEB ×3 (02:55→16:00)
[2016-12-12] MEDS: CHLORHEXIDINE GLUCONATE 2 % 1 PACK (2 CLOTHS) TOP SCH (04:00)
[2016-12-12 05:38] LABS: APTT (PATIENT) 30.1 SEC (24.3-30.1)
[2016-12-12 05:49] LABS: ALKALINE PHOSPHATASE 88 U/L (45-117); ALT (GPT) 30 U/L (12-78); ANION GAP 14 MEQ/L (5-15); AST (GOT) 11 U/L (15-37); BICARBONATE 20.7 MEQ/L (21.0-32.0); BLOOD UREA NITROGEN 84 MG/DL (7-18); CHLORIDE 97 MEQ/L (98-107); GLOMERULAR FILTRATION RATE 13 ML/MIN (>89); MAGNESIUM 2.6 MG/DL (1.5-2.5); POTASSIUM 3.7 MEQ/L (3.5-5.1); SODIUM (NA) 132 MEQ/L (136-145); TOTAL BILIRUBIN ADULT 0.3 MG/DL (0.2-1.0)
[2016-12-12] MEDS: INSULIN ASPART 1,000 UNITS/10 ML VIAL SQ SCH ×4 (07:00→21:00)
--- NOTE | 2016-12-12 07:08 | RADRPT ---
EXAM DATE/TIME: 12/12/2016 05:21 [facility] COMPARISON: CHEST SINGLE AP, December 11, 2016, 16:28. INDICATIONS : Respiratory status. MEDICAL HISTORY : None. SURGICAL HISTORY : None. ENCOUNTER: Subsequent ACUITY: 4 - 6 days PAIN SCORE: Non-responsive. LOCATION: Bilateral chest FINDINGS: Interval improvement in diffuse interstitial prominence and patchy alveolar opacities. Improved left lower lobe aeration and likely trace pleural effusion. Cardi nasal contours are stable. Remainder of exam is unchanged. CONCLUSION: 1. Improved pulmonary edema pattern. 2. Improved left lower lobe airspace disease and likely trace pleural effusion. Jones Joshi MD on December 12, 2016 at 7:06 Board Certified Radiologist. This report was verified electronically.
[2016-12-12] MEDS: ASPIRIN 81 MG CHEW TAB CHEW SCH (08:00)
[2016-12-12] MEDS: DOCUSATE SODIUM 50 MG/SENNA 8.6 MG TAB PO SCH ×2 (08:00→21:20)
[2016-12-12] MEDS: CARVEDILOL 6.25 MG TAB PO SCH ×2 (08:00→21:20)
--- NOTE | 2016-12-12 08:18 | HHI.CCPN ---
Subjective Remarks/Hospital Course Patient is a 46-year-old male with past medical history significant for type 1 diabetes, hypertension who presented to the emergency department with worsening shortness of breath for the last 5 days and subjective fever of 101 about 3 days ago, He was also complaining about abdominal pain and distention along with nausea. He initially went to his doctor's office and was referred to the emergency department. In the ED patient was hypoxic saturating in the 80s on room air, improved to 93% on 4 L NC. His lab work showed WBC count 12.1. H/H 8.7/24.9. Troponin is elevated at 2.04, BNP elevated at 1053. BUN/creatinine elevated at 76/5.32. CXR showed mild cardiomegaly and pulmonary edema. Critical care medicine was consulted for admission. Patient received 80 mg of Lasix in the ED. I evaluated the patient in the ED. He is in moderate respiratory distress using accessory muscles. I did a bedside echo which showed ejection fraction approximately 30-35%. Pleural ultrasound showed moderate to large bilateral pleural effusions. I have discussed with Dr. Bill, I will start patient on IV heparin, Coreg and aspirin. I performed a bedside thoracentesis on the right side with immediate improvement in clinical symptoms , and about 1 L of blood-tinged pleural fluid was removed. I also discussed with Dr. Bess. I will discontinue the scheduled Lasix and started on Bumex infusion, after post thoracentesis chest x-ray shows some worsening of pulmonary edema. Patient will need a cardiac catheterization once he is more stable from respiratory standpoint. We'll start patient on BiPAP to reduce his work of breathing SUBJ 12/12: Patient sbreathing better. Chest x-ray shows interval improvement in pulmonary edema and effusions. Patient had emergent right thoracentesis performed in the ED yesterday with 1 L blood-tinged fluid removed. Trop Trending down to 1.3 last creatinine improved from 5.2-4.9. Urine output approximately 4 L in the last 16-18 hours on Bumex infusion Objective Vital Signs Date Time Temp Pulse Resp B/P (MAP) Pulse Ox O2 Delivery O2 Flow Rate FiO2 12/12/16 08:00 98.0 90 17 131/72 (91) 100 12/11/16 18:35 Nasal Cannula 3.00 Intake and Output 12/12/16 12/12/16 12/13/16 08:00 16:00 00:00 Intake Total 416 ml Output Total 2800 ml Balance -2384 ml Result Diagram: 12/11/16 2301 12/12/16 0425 Other Results Laboratory Tests Test 12/11/16 12:25 Blood Gas Puncture Site RT RADIAL Blood Gas Patient Temperature 98.6 Blood Gas HCO3 19 mmol/L (22-26) Blood Gas Base Excess -5.3 mmol/L (-2-2) Blood Gas Oxygen Saturation 90 % (90-100) Arterial Blood pH 7.35 (7.380-7.420) Arterial Blood Partial Pressure CO2 36 mmHg (38-42) Arterial Blood Partial Pressure O2 68 mmHG (61-120) Arterial Blood Oxygen Content 10.1 Vol % (12.0-20.0) Arterial Blood Carboxyhemoglobin 2.1 % (0-4) Arterial Blood Methemoglobin 0.9 % (0-2) Blood Gas Hemoglobin 7.9 G/DL (12.0-16.0) Oxygen Delivery Device NASAL CANNULA Blood Gas Liter Flow 4 L/M Imaging Chest x-ray shows bilateral pleural effusion and pulmonary edema Objective Remarks GENERAL: Breathing more comfortably lying in bed SKIN: Skin assessment warm/dry. HEAD: Atraumatic. Normocephalic. EYES: Pupils equal and round. No scleral icterus. ENT: No nasal bleeding or discharge. NECK: Trachea midline. No JVD. CARDIOVASCULAR: Tachycardic. No murmur appreciated. Bedside echo -EF 30-35% with apical WMA RESPIRATORY:Breath sounds equal bilaterally, air entry reduced in bilateral lower lung landin. Status post right thoracentesis on 1 L fluid removed GASTROINTESTINAL: Abdomen soft distended. Mild epigastric tenderness MUSCULOSKELETAL: No obvious deformities. No clubbing. NEUROLOGICAL: Awake and alert. No obvious cranial nerve deficits. Motor grossly within normal limits. Urinary Catheter: Yes Assessment to: Continue A/P Assessment and Plan NEURO: - As needed morphine for pain and anxiety RESP: Acute hypoxemic respiratory failure Bilateral large effusions Possible pneumonia COPD - s/p right thoracentesis and removed 1 L of blood-tinged fluid. Fluid is transudative - BiPAP 10 over 5 as needed. DuoNeb every 6 hours scheduled and when necessary - Received 1 dose of Solu-Medrol 60 mg 1 in ED, placed on scheduled 40 every 12 - Continue Symbicort - Broad-spectrum antibiotics with Azactam and azithromycin for possible pneumonia. DC Azactam CV: Acute NSTEMI Acute systolic heart failure Ischemic cardiomyopathy - Currently on Bumex infusion at 1 mg per hour. Change to Bumex 2 mg IV every 8 hours with potassium supplementation - Continue IV heparin, aspirin, Coreg. Cannot use MELECIO inhibitor due to acute renal failure. Start atorvastatin 10 mg daily at bedtime - Discussed with Dr. Bill, probable cardiac catheter in 1-2 days, once creat improved - Echo showed EF 25-30%,apical wall motion abnormality GI: - 1999 ADA, renal diet. IV Protonix-DC, place on famotidine : Acute kidney failure - Monitor renal function closely. Continue Queen catheter due to acute renal failure on high dose diuretics - Bumex infusion at 1 mg per hour. Change to Bumex 2 mg IV every 8 hours with potassium supplementation - Nephrology Dr. Bess following, renal ultrasound did not show any evidence of chronic disease ID: Sepsis vs SIRS - Blood cultures sent. Dc Azactam and continue azithromycin HEME: Microcytic anemia - Monitor CBC, CMP, coags. Start iron supplements. Check B12 - On IV Heparin ENDO: Type 1 diabetes - Patient takes 40 units of Lantus at bedtime and NovoLog sliding scale - Due to renal failure I placed him on reduced dose of insulin 20 units of Levemir, and pre meal NovoLog with SSI PROPH: - Bilateral lower extremity SCDs. IV Heparin. Famotidine LINES: - Utilize peripheral IVs, central line if needed Level 3 If patient remains stable, transfer to [facility] afternoon Paulette Verdugo MD Dec 12, 2016 08:18
[2016-12-12] MEDS ORDERED: PANTOPRAZOLE SODIUM 40 MG VIAL IV SCH (09:00)
[2016-12-12] MEDS ORDERED: FAMOTIDINE 20 MG TAB PO SCH (09:00)
[2016-12-12] MEDS: FAMOTIDINE 20 MG TAB PO SCH ×2 (09:00→21:20)
[2016-12-12] MEDS ORDERED: FUROSEMIDE 40 MG/4 ML VIAL IV PUSH SCH (09:00)
[2016-12-12] MEDS: BUMETANIDE INJ 1 MG/4 ML VIAL IV PUSH SCH ×2 (09:00→17:00)
[2016-12-12] MEDS: FERROUS SULFATE 325 MG (65 MG ELEMENTAL IRON) TAB PO SCH ×2 (09:00→21:20)
[2016-12-12 09:02] LABS: BASOPHIL # 0.1 TH/MM3 (0-0.2); BASOPHIL % 0.6 % (0.0-2.0); HEMATOCRIT 24.5 % (39.0-51.0); HEMO FLAGS DIFF FINAL; LYMPH % 5.1 % (9.0-44.0); LYMPHOCYTE # 0.6 TH/MM3 (1.0-4.8); MEAN CELL VOLUME 90.7 FL (80.0-100.0); MEAN CORPUSCULAR HGB CONC 34.2 % (32.0-36.0); MONO % 5.3 % (0.0-8.0); PLATELET COUNT 334 TH/MM3 (150-450); RED BLOOD COUNT 2.71 MIL/MM3 (4.50-5.90); RED CELL DISTRIBUTION WIDTH 12.3 % (11.6-17.2); WHITE BLOOD COUNT 12.4 TH/MM3 (4.0-11.0)
--- NOTE | 2016-12-12 13:01 | EKG ---
Date Performed: 12/11/2016 Time Performed: 12:10:13 PTAGE: 46 years EKG: Sinus rhythm POSSIBLE LEFT ATRIAL ENLARGEMENT NONSPECIFIC ST & T-WAVE ABNORMALITY BORDERLINE ECG NO PREVIOUS TRACING DOCTOR: Alex Lewis Interpretating Date/Time 12/12/2016 12:51:50
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
[2016-12-12 15:27] LABS: APTT (PATIENT) 29.2 SEC (24.3-30.1)
[2016-12-12] MEDS: AZITHROMYCIN INJ 500 MG in SODIUM CHLOR 0.9% 250 ML INJ 250 ML IV SCH (17:00)
[2016-12-12] MEDS ORDERED: ATORVASTATIN 10 MG TAB PO SCH (21:00)
[2016-12-12] MEDS: INSULIN DETEMIR 100 UNITS/ML VIAL SQ SCH (21:00)
[2016-12-12] MEDS: methylPREDNISolone SOD SUCC 40 MG/1 ML VIAL IV SCH (21:20)
[2016-12-12 21:35] LABS: APTT (PATIENT) 28.8 SEC (24.3-30.1)
[2016-12-12] MEDS: HEPARIN-D5W 25,000 U/250 ML 250 ML IV PRN (23:52)
[2016-12-13] VITALS (18 sets, daily range): BP systolic 112–142; BP diastolic 67–80; PULSE 64–91; RESP 18–19; TEMP 97.7–98.7; O2SAT 95–96
[2016-12-13] MEDS: BUMETANIDE INJ 1 MG/4 ML VIAL IV PUSH SCH ×2 (00:55→09:25)
[2016-12-13] MEDS: CHLORHEXIDINE GLUCONATE 2 % 1 PACK (2 CLOTHS) TOP SCH (00:57)
[2016-12-13] MEDS: RESP: ALBUTEROL 2.5 MG/IPRATROPIUM 0.5 MG NEB (SCH) NEB ×3 (04:04→15:57)
[2016-12-13] MEDS: INSULIN ASPART 1,000 UNITS/10 ML VIAL SQ SCH ×2 (06:15→11:00)
[2016-12-13] MEDS: INSULIN ASPART SUPPLEMENTAL SCALE SQ SCH ×2 (06:16→11:00)
[2016-12-13 07:32] LABS: APTT (PATIENT) 33.1 SEC (24.3-30.1)
[2016-12-13 07:38] LABS: AUTOMATED NEUTROPHIL # 11.3 TH/MM3 (1.8-7.7); BASOPHIL # 0.1 TH/MM3 (0-0.2); BASOPHIL % 0.7 % (0.0-2.0); HEMATOCRIT 23.4 % (39.0-51.0); HEMO FLAGS DIFF FINAL; LYMPHOCYTE # 0.6 TH/MM3 (1.0-4.8); MEAN CELL VOLUME 90.6 FL (80.0-100.0); MEAN CORPUSCULAR HGB CONC 35.3 % (32.0-36.0); NEUT % 92.3 % (16.0-70.0); PLATELET COUNT 323 TH/MM3 (150-450); RED BLOOD COUNT 2.58 MIL/MM3 (4.50-5.90); RED CELL DISTRIBUTION WIDTH 12.4 % (11.6-17.2); WHITE BLOOD COUNT 12.3 TH/MM3 (4.0-11.0)
[2016-12-13 08:01] LABS: ANION GAP 13 MEQ/L (5-15); AST (GOT) 7 U/L (15-37); BLOOD UREA NITROGEN 94 MG/DL (7-18); CHLORIDE 101 MEQ/L (98-107); GLOMERULAR FILTRATION RATE 15 ML/MIN (>89); MAGNESIUM 2.5 MG/DL (1.5-2.5); POTASSIUM 3.8 MEQ/L (3.5-5.1); SODIUM (NA) 134 MEQ/L (136-145)
[2016-12-13 08:04] LABS: ALKALINE PHOSPHATASE 69 U/L (45-117); ALT (GPT) 22 U/L (12-78); TOTAL BILIRUBIN ADULT 0.2 MG/DL (0.2-1.0)
[2016-12-13] MEDS: BUDESONIDE-FORMOTEROL 160/4.5 MCG INHALER INH SCH (09:24)
[2016-12-13] MEDS: DOCUSATE SODIUM 50 MG/SENNA 8.6 MG TAB PO SCH (09:25)
[2016-12-13] MEDS: methylPREDNISolone SOD SUCC 40 MG/1 ML VIAL IV SCH (09:25)
[2016-12-13] MEDS: ASPIRIN 81 MG CHEW TAB CHEW SCH (09:25)
[2016-12-13] MEDS: FERROUS SULFATE 325 MG (65 MG ELEMENTAL IRON) TAB PO SCH (09:26)
[2016-12-13] MEDS: CARVEDILOL 6.25 MG TAB PO SCH (09:26)
[2016-12-13] MEDS: FAMOTIDINE 20 MG TAB PO SCH (09:26)
[2016-12-13] MEDS ORDERED: CARV6.25 PO (09:55)
[2016-12-13] MEDS ORDERED: VENTAER INH (09:55)
[2016-12-13] MEDS ORDERED: LEVEMIR SQ (09:55)
[2016-12-13] MEDS ORDERED: BUME1TAB PO (09:55)
[2016-12-13] MEDS ORDERED: NOVOLOGP2 SQ (09:55)
[2016-12-13] MEDS ORDERED: FERR325T20 PO (09:55)
[2016-12-13] MEDS ORDERED: AZIT500T2 PO (09:55)
[2016-12-13] MEDS ORDERED: LIPI10TA PO (09:55)
[2016-12-13] MEDS ORDERED: PRED50 PO (09:55)
[2016-12-13] MEDS ORDERED: ASPI81CH25 CHEW (09:55)
[2016-12-13 10:39] LABS: ANA SCREEN NEG (NEG)
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
[2016-12-13] MEDS ORDERED: BUME2TAB PO (15:09)
[2016-12-17 12:44] LABS: ALBUMIN SPE 3.21 GM/DL (3.50-5.00); ALPHA 1 GLOBULIN 0.41 GM/DL (0.11-0.29); ALPHA 2 GLOBULIN 1.41 GM/DL (0.22-1.00); BETA GLOBULINS (SPE) 1.17 GM/DL (0.53-1.03)
== END 2016-12-13 16:04 | disposition left against medical advice (07) | DRG 280 ==
LOC: NEPE 11:51 → NEDA 13:58 → HIMN 19:30 → HCIS 12-12 18:42
PROVIDERS: ADMIT Family Medicine; ATTEND Family Medicine
PROC: 0W993ZZ Drainage of Right Pleural Cavity, Percutaneous Approach (ICD-10-PCS; principal; 2016-12-11)
PROC: 5A09357 Assistance with Respiratory Ventilation, Less than 24 Consecutive Hours, Continuous Positive Airway Pressure (ICD-10-PCS; 2016-12-11)
PROC: 0W993ZX Drainage of Right Pleural Cavity, Percutaneous Approach, Diagnostic (ICD-10-PCS; 2016-12-11)
DX: I13.0 Hypertensive heart and chronic kidney disease with heart failure and stage 1 through stage 4 chronic kidney disease, or unspecified chronic kidney disease (principal); I50.23 Acute on chronic systolic (congestive) heart failure; I21.4 Non-ST elevation (NSTEMI) myocardial infarction; J96.01 Acute respiratory failure with hypoxia; N17.9 Acute kidney failure, unspecified; R65.10 Systemic inflammatory response syndrome (SIRS) of non-infectious origin without acute organ dysfunction; J91.8 Pleural effusion in other conditions classified elsewhere; E87.1 Hypo-osmolality and hyponatremia; E10.22 Type 1 diabetes mellitus with diabetic chronic kidney disease; E87.6 Hypokalemia; I25.5 Ischemic cardiomyopathy; D50.9 Iron deficiency anemia, unspecified; J44.9 Chronic obstructive pulmonary disease, unspecified; N18.9 Chronic kidney disease, unspecified; Z87.891 Personal history of nicotine dependence; Z79.4 Long term (current) use of insulin
CPT/HCPCS: 36600; 71010; 74176; 76775; 80048; 80053; 80061; 80074; 80076; 81001; 82150; 82570; 82607; 82805; 82945; 83540; 83550; 83605; 83615; 83690; 83735; 83880; 83986; 84100; 84156; 84157; 84165; 84484; 85025; 85027; 85610; 85730; 86038; 86160; 87015; 87040; 87070; 87102; 87116; 87205; 87206; 87641; 89051; 93005; 93306; 94640; 94664; 96374; 96375; C9113; J0456; J1644; J1815; J1940; J2920; J2930; J7050

== ENCOUNTER 2017-04-09 18:47 | Emergency (ER) | payer MEDICAID ==
[~2017-04-09] VITALS: Ht 175.3 cm; Wt 78.5 kg
[~2017-04-09 18:47] MED LIST changes: -ADVAI100I PO; -ALBU1AER INH; +AMLO5TAB2 PO; +ASPI81CH25 CHEW; +AZIT500T2 PO; +BUME2TAB PO; +CARV6.25 PO; +FERR325T20 PO; +GABA600T PO; +HYDR25TA5 PO; +LANTUS2P SQ; -LANTUSP SQ; +LEVEMIR SQ; +LIPI10TA PO; -LISI2.5T3 PO; +LUTE6CAP2 PO; +NOVOLOGSS SQ; +OMEP20TA93 PO; +PRED50 PO; +VENTAER INH
[2017-04-09 18:48] VITALS: BP 166/88; PULSE 78; RESP 18; TEMP 98.7; O2SAT 100
[2017-04-09 18:56] VITALS: BP 173/88; PULSE 74; RESP 22; O2SAT 99
[2017-04-09 19:05] VITALS: RESP 20; O2SAT 99
[2017-04-09] MEDS ORDERED: ASPIRIN 81 MG CHEW TAB PO ONE (19:15)
[2017-04-09] MEDS ORDERED: SODIUM CHLORIDE 0.9% FLUSH 10 ML FLUSH IVF PRN (19:15)
[2017-04-09] MEDS ORDERED: NITROGLYCERIN 2% OINT 1 GM PACKET TOP ONE (19:15)
[2017-04-09] MEDS ORDERED: MORPHINE SULFATE 4 MG/ML INJ IV PUSH ONE ×2 (19:15)
[2017-04-09] MEDS ORDERED: MORPHINE SULFATE 8 MG/ML INJ ONE (19:38)
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
--- NOTE | 2017-04-09 20:04 | PD ---
HPI Chief Complaint: Chest Pain Time Seen by Provider: 19:09 Travel History International Travel<30 days: No Contact w/Intl Traveler<30days: No Traveled to known affect area: No History of Present Illness HPI This is a 46-year-old male with a history of insulin-dependent diabetes, chronic kidney disease, hyperlipidemia, hypertension, recent non-ST elevation ND , who presents here with complaints of left sided shoulder and back pain with anterior left sided chest involvement. The patient reports it as a burning sharp sensation. He states it is tender to touch. He denies any shortness of breath. He denies any nausea or diaphoresis. He is concerned that this may be related to his non-ST elevation ND. The patient has not had a cardiac catheter as of yet as he had severe kidney disease and was unable to undergo a catheter secondary to the dye. He is being medically managed at this time. The patient denies any fevers, chills. He denies any productive cough. There are no other complaints time my examination. PFSH Past Medical History Chest Pain: Yes Diabetes: Yes Patient Takes Glucophage: No Hypertension: Yes Tetanus Vaccination: < 5 Years Past Surgical History Abdominal Surgery: Yes (appendix) Appendectomy: Yes Other Surgery: Yes Social History Alcohol Use: No Tobacco Use: No Substance Use: No Allergies-Medications (Allergen,Severity, Reaction): Coded Allergies: penicillin G (Unverified Adverse Reaction, Severe, WELTS, 11/19/16) Reported Meds & Prescriptions Reported Meds & Active Scripts Active Percocet (Oxycodone-Acetaminophen) 10-325 mg Tab 1 Tab PO Q6H PRN Acyclovir 800 Mg Tab 800 Mg PO 5 TIMES A DAY 10 Days Bumetanide 2 Mg Tab 2 Mg PO BID Ventolin Hfa 18 GM Inh (Albuterol Sulfate) 90 Mcg/Act Aer 2 Puff INH Q6H PRN Prednisone 50 Mg Tab 50 Mg PO DAILY Azithromycin 500 Mg Tab 500 Mg PO DAILY Novolog Inj (Insulin Aspart) 1,000 Unit/10 Ml Vial 5 Units SQ ACHS Levemir Inj (Insulin Detemir) 1,000 unit/ 10 ML Vial 20 Units SQ HS Do not mix with any other Insulin. Aspirin Low Strength (Aspirin) 81 Mg Chew 81 Mg CHEW DAILY Coreg (Carvedilol) 6.25 Mg Tab 6.25 Mg PO Q12HR Lipitor (Atorvastatin Calcium) 10 Mg Tab 10 Mg PO HS Ferosul (Ferrous Sulfate) 325 Mg (65 Mg Iron) Tablet 325 Mg PO BID Reported Lutein Unknown Strength Cap 1 Cap PO DAILY Amlodipine (Amlodipine Besylate) 5 Mg Tab 5 Mg PO DAILY Omeprazole 20 Mg Tab 40 Mg PO DAILY Gabapentin 600 Mg Tab 600 Mg PO TID Hydrochlorothiazide 25 Mg Tab 25 Mg PO DAILY Lantus Inj (Insulin Glargine) 1,000 Unit/10 Ml Vial 40 Units SQ HS Novolog Inj (Insulin Aspart) 100 Unit/Ml Inj 30 Units SQ TIDAC Review of Systems Except as stated in HPI: all other systems reviewed are Neg General / Constitutional: No: Fever, Chills HENT: No: Headaches, Neck Pain Cardiovascular: Positive: Chest Pain or Discomfort, No: Palpitations (left upper anterior next to his shoulder. He reports it as a burning sensation.), Irregular Rhythm Respiratory: No: Cough, Shortness of Breath Gastrointestinal: No: Nausea, Vomiting, Abdominal Pain Genitourinary: No: Dysuria, Decreased Urinary Output Musculoskeletal: Positive: Limited ROM, Pain (left shoulder and posterior scapular), No: Weakness Skin: Positive Rash (under his arm and in his lateral anterior chest), Positive Lesions (vesicular) Neurologic: No: Weakness, Dizziness, Headache Physical Exam Narrative GENERAL: Well developed well-nourished male in no acute respiratory distress. SKIN: Focused skin assessment warm/dry. HEAD: Atraumatic. Normocephalic. EYES: Pupils equal and round. No scleral icterus. No injection or drainage. ENT: No nasal bleeding or discharge. Mucous membranes pink and moist. NECK: Trachea midline. Supple. CARDIOVASCULAR: Regular rate and rhythm. No murmur appreciated. RESPIRATORY: No accessory muscle use. Clear to auscultation. Breath sounds equal bilaterally. GASTROINTESTINAL: Abdomen soft, non-tender, nondistended. Hepatic and splenic margins not palpable. MUSCULOSKELETAL: No obvious deformities. No clubbing. No cyanosis. No edema. BACK: No CVA tenderness. Examinations patient's posterior scapular area and under his arm, there is a linear vesicular rash that extends from his posterior underarm to his lateral anterior chest. This has the appearance of zoster. NEUROLOGICAL: Awake and alert. No obvious cranial nerve deficits. Motor grossly within normal limits. Normal speech. PSYCHIATRIC: Appropriate mood and affect; insight and judgment normal. Data Data Last Documented VS Vital Signs Date Time Temp Pulse Resp B/P (MAP) Pulse Ox O2 Delivery O2 Flow Rate FiO2 04/09/17 19:05 20 99 Nasal Cannula 2.00 04/09/17 18:57 81 04/09/17 18:48 98.7 Orders Orders Basic Metabolic Panel (Bmp) (04/09/17 19:14) Ckmb (Isoenzyme) Profile (04/09/17 19:14) Complete Blood Count With Diff (04/09/17 19:14) Magnesium (Mg) (04/09/17 19:14) Prothrombin Time / Inr (Pt) (04/09/17 19:14) Act Partial Throm Time (Ptt) (04/09/17 19:14) Troponin I (04/09/17 19:14) Chest, Single Ap (04/09/17 19:14) Ecg Monitoring (04/09/17 19:14) Bilateral Bp Monitoring (04/09/17 19:14) Iv Access Insert/Monitor (04/09/17 19:14) Oximetry (04/09/17 19:14) Oxygen Administration (04/09/17 19:14) Aspirin Chew (Aspirin Chew) (04/09/17 19:15) Morphine Inj (Morphine Inj) (04/09/17 19:15) Nitroglycerin 2% Oint (Nitroglycerin 2% (04/09/17 19:15) Sodium Chloride 0.9% Flush (Ns Flush) (04/09/17 19:15) Morphine Inj (Morphine Inj) (04/09/17 19:15) Morphine Inj (Morphine Inj) (04/09/17 19:38) Electrocardiogram (04/09/17 18:55) CKMB (04/09/17 19:40) CKMB% (04/09/17 19:40) Labs Laboratory Tests Test 04/09/17 19:40 White Blood Count 7.4 TH/MM3 Red Blood Count 3.36 MIL/MM3 Hemoglobin 10.6 GM/DL Hematocrit 30.3 % Mean Corpuscular Volume 90.1 FL Mean Corpuscular Hemoglobin 31.6 PG Mean Corpuscular Hemoglobin Concent 35.1 % Red Cell Distribution Width 12.6 % Platelet Count 266 TH/MM3 Mean Platelet Volume 8.5 FL Neutrophils (%) (Auto) 64.2 % Lymphocytes (%) (Auto) 19.5 % Monocytes (%) (Auto) 9.1 % Eosinophils (%) (Auto) 6.3 % Basophils (%) (Auto) 0.9 % Neutrophils # (Auto) 4.7 TH/MM3 Lymphocytes # (Auto) 1.4 TH/MM3 Monocytes # (Auto) 0.7 TH/MM3 Eosinophils # (Auto) 0.5 TH/MM3 Basophils # (Auto) 0.1 TH/MM3 CBC Comment DIFF FINAL Differential Comment Prothrombin Time 10.0 SEC Prothromb Time International Ratio 1.0 RATIO Activated Partial Thromboplast Time 24.0 SEC Blood Urea Nitrogen 67 MG/DL Creatinine 3.73 MG/DL Random Glucose 119 MG/DL Calcium Level 9.3 MG/DL Magnesium Level 2.3 MG/DL Sodium Level 141 MEQ/L Potassium Level 3.9 MEQ/L Chloride Level 106 MEQ/L Carbon Dioxide Level 25.3 MEQ/L Anion Gap 10 MEQ/L Estimat Glomerular Filtration Rate 18 ML/MIN Total Creatine Kinase 135 U/L Creatine Kinase MB 3.8 NG/ML Troponin I 0.04 NG/ML MDM Medical Decision Making Medical Screen Exam Complete: Yes Emergency Medical Condition: Yes Differential Diagnosis Herpes zoster versus ACS versus musculoskeletal pain Narrative Course 46-year-old male presented today with complaints of atypical left sided chest pain and left scapular pain. The patient has a history of coronary artery disease. He also had a history of non-STEMI. The patient's BUN/creatinine are elevated however improved from previous levels. Cardiac enzymes are negative for acute process. EKG shows no evidence of acute abnormalities. The patient does have a rash on his left underarm radiating to his left lateral chest and back. This is consistent with herpes zoster. The patient thought he had never had chickenpox however does report call a rash in the past that he will thought was measles. I discussed with him that this is consistent with shingles. He' ll be started on acyclovir 800 mg 5 times daily 10 days. He also be given a prescription for Percocet for pain control. He is instructed to follow up with his primary care physician. He is also instructed that he is intake just as long as he has active vesicles. Diagnosis Primary Impression: herpes zoster of the left scapular/anterior chest Additional Impressions: Coronary artery disease Diabetes mellitus Chronic kidney disease Additional Instructions: You are contagious as long as you have vesicles present. He will no longer be contagious when the vesicles crust over. Follow up with her primary care physician. Return if feeling worse. Be careful with pain medication, do not drive or drink alcohol while taking it. Med/Other Pt SpecificInfo: Prescription(s) given Scripts Oxycodone-Acetaminophen (Percocet) 10-325 mg Tab 1 TAB PO Q6H Y for PAIN, #20 TAB 0 Refills Prov: John Kay MD 04/09/17 Acyclovir (Acyclovir) 800 Mg Tab 800 MG PO 5 TIMES A DAY for Mgmt Viral Infection for 10 Days, #50 TAB 0 Refills Prov: John Kay MD 04/09/17 Disposition: 01 DISCHARGE HOME Condition: Stable John Kay MD Apr 09, 2017 20:04
[2017-04-09 20:29] LABS: AUTOMATED NEUTROPHIL # 4.7 TH/MM3 (1.8-7.7); BASOPHIL # 0.1 TH/MM3 (0-0.2); BASOPHIL % 0.9 % (0.0-2.0); EOSINOPHIL # 0.5 TH/MM3 (0-0.4); EOSINOPHIL % 6.3 % (0.0-4.0); HEMATOCRIT 30.3 % (39.0-51.0); HEMOGLOBIN 10.6 GM/DL (13.0-17.0); LYMPH % 19.5 % (9.0-44.0); LYMPHOCYTE # 1.4 TH/MM3 (1.0-4.8); MEAN CELL VOLUME 90.1 FL (80.0-100.0); MEAN CORPUSCULAR HEMOGLOBIN 31.6 PG (27.0-34.0); MEAN CORPUSCULAR HGB CONC 35.1 % (32.0-36.0); MEAN PLATELET VOLUME 8.5 FL (7.0-11.0); MONO % 9.1 % (0.0-8.0); MONOCYTE # 0.7 TH/MM3 (0-0.9); NEUT % 64.2 % (16.0-70.0); PLATELET COUNT 266 TH/MM3 (150-450); RED BLOOD COUNT 3.36 MIL/MM3 (4.50-5.90); RED CELL DISTRIBUTION WIDTH 12.6 % (11.6-17.2); WHITE BLOOD COUNT 7.4 TH/MM3 (4.0-11.0)
[2017-04-09] MEDS ORDERED: PERC10TA27 PO (20:29)
[2017-04-09] MEDS ORDERED: ACYC800T PO (20:29)
[2017-04-09 21:24] LABS: BICARBONATE 25.3 MEQ/L (21.0-32.0); BLOOD UREA NITROGEN 67 MG/DL (7-18); CALCIUM 9.3 MG/DL (8.5-10.1); CHLORIDE 106 MEQ/L (98-107); CREATININE 3.73 MG/DL (0.60-1.30); GLOMERULAR FILTRATION RATE 18 ML/MIN (>89); GLUCOSE,RANDOM 119 MG/DL (74-106); MAGNESIUM 2.3 MG/DL (1.5-2.5); SODIUM (NA) 141 MEQ/L (136-145)
[2017-04-09 21:28] LABS: TROPONIN I 0.04 NG/ML (0.02-0.05)
--- NOTE | 2017-04-11 23:38 | EKG ---
Date Performed: 04/09/2017 Time Performed: 18:55:32 PTAGE: 46 years EKG: Sinus rhythm LEFT VENTRICULAR HYPERTROPHY AND ST-T CHANGE ABNORMAL ECG NO PREVIOUS TRACING DOCTOR: Michaela Dempsey Interpretating Date/Time 04/11/2017 23:37:17
== END 2017-04-09 22:07 | disposition home or self-care (01) ==
LOC: NEPE 18:47
DX: B02.9 Zoster without complications (principal); I25.10 Atherosclerotic heart disease of native coronary artery without angina pectoris; I12.9 Hypertensive chronic kidney disease with stage 1 through stage 4 chronic kidney disease, or unspecified chronic kidney disease; N18.9 Chronic kidney disease, unspecified; E11.22 Type 2 diabetes mellitus with diabetic chronic kidney disease; E78.5 Hyperlipidemia, unspecified; R94.31 Abnormal electrocardiogram [ECG] [EKG]; I25.2 Old myocardial infarction
CPT/HCPCS: 71045; 80048; 82550; 82552; 83735; 84484; 85025; 85610; 85730; 93005; 96374; 96376; 99285; J2270

== ENCOUNTER 2017-07-30 12:29 | Observation (INO) | payer MEDICAID ==
[~2017-07-30 12:29] MED LIST changes: +ACYC800T PO; +PERC10TA27 PO
[2017-07-30 12:33] VITALS: BP 135/67; PULSE 82; RESP 16; TEMP 97.4; O2SAT 99
[2017-07-30] MEDS ORDERED: SODIUM CHLORIDE 0.9% FLUSH 10 ML FLUSH IVF PRN (13:00)
--- NOTE | 2017-07-30 13:12 | PD ---
Physical Exam Date Seen by Provider: Jul 30, 2017 Data Data Last Documented VS Vital Signs Date Time Temp Pulse Resp B/P (MAP) Pulse Ox O2 Delivery O2 Flow Rate FiO2 07/30/17 12:33 97.4 82 16 135/67 (89) 99 Orders Orders Complete Blood Count With Diff (07/30/17 12:48) Comprehensive Metabolic Panel (07/30/17 12:48) Prothrombin Time / Inr (Pt) (07/30/17 12:48) Act Partial Throm Time (Ptt) (07/30/17 12:48) Type And Screen (07/30/17 12:48) Ecg Monitoring (07/30/17 12:48) Iv Access Insert/Monitor (07/30/17 12:48) Orthostatic Vital Signs (07/30/17 12:48) Oximetry (07/30/17 12:48) Sodium Chloride 0.9% Flush (Ns Flush) (07/30/17 13:00) Chest, Single Ap (07/30/17 ) Troponin I (07/30/17 13:09) Ckmb (Isoenzyme) Profile (07/30/17 13:09) Red Blood Cells (Rbc) (07/30/17 13:19) Blood Product Administration (07/30/17 13:19) Furosemide Inj (Lasix Inj) (07/30/17 13:30) Electrocardiogram (07/30/17 12:43) Labs Laboratory Tests Test 07/30/17 12:57 White Blood Count 7.4 TH/MM3 Red Blood Count 2.02 MIL/MM3 Hemoglobin 6.7 GM/DL Hematocrit 19.0 % Mean Corpuscular Volume 94.1 FL Mean Corpuscular Hemoglobin 33.1 PG Mean Corpuscular Hemoglobin Concent 35.2 % Red Cell Distribution Width 12.7 % Platelet Count 260 TH/MM3 Mean Platelet Volume 8.3 FL Neutrophils (%) (Auto) 61.6 % Lymphocytes (%) (Auto) 21.2 % Monocytes (%) (Auto) 10.2 % Eosinophils (%) (Auto) 6.0 % Basophils (%) (Auto) 1.0 % Neutrophils # (Auto) 4.6 TH/MM3 Lymphocytes # (Auto) 1.6 TH/MM3 Monocytes # (Auto) 0.8 TH/MM3 Eosinophils # (Auto) 0.4 TH/MM3 Basophils # (Auto) 0.1 TH/MM3 CBC Comment DIFF FINAL Differential Comment Prothrombin Time 9.8 SEC Prothromb Time International Ratio 1.0 RATIO Activated Partial Thromboplast Time 22.1 SEC Blood Urea Nitrogen 63 MG/DL Creatinine 4.53 MG/DL Random Glucose 115 MG/DL Total Protein 7.6 GM/DL Albumin 4.0 GM/DL Calcium Level 9.6 MG/DL Alkaline Phosphatase 71 U/L Aspartate Amino Transf (AST/SGOT) 15 U/L Alanine Aminotransferase (ALT/SGPT) 25 U/L Total Bilirubin 0.2 MG/DL Sodium Level 136 MEQ/L Potassium Level 4.2 MEQ/L Chloride Level 101 MEQ/L Carbon Dioxide Level 26.1 MEQ/L Anion Gap 9 MEQ/L Estimat Glomerular Filtration Rate 14 ML/MIN MDM Medical Record Reviewed: Yes Supervised Visit with HOMAR: Yes Narrative Course I, Dr. Jules, have reviewed the advance practice practitioner's, Anahy Garcia's, documentation and am in agreement, met with the patient face to face, made the diagnosis, and the medical decision making was done by me. *My assessment and Findings: Patient is a 47 year old male sent to the ER by Dr. Bess for symptomatic anemia. Reports that he had blood drawn yesterday and was called today by his pediatrics teacher as he was grossly anemic with a HGB 6.4. He was told to come to the ER for a admission to hospital as he will require blood transfusion. Overall , patient complains of generalized weakness, he does have heme positive stools, no history of GI bleed in the past. Reports that he does have ESRD and is preparing for dialysis. HBG 6.7, patient will require admission to the hospital for blood transfusion CBC & BMP Diagram 07/30/17 12:57 Total Protein 7.6, Albumin 4.0, Calcium Level 9.6, Alkaline Phosphatase 71, Aspartate Amino Transf (AST/SGOT) 15, Alanine Aminotransferase (ALT/SGPT) 25, Total Bilirubin 0.2 BUN/CR is at baseline Diagnosis Primary Impression: Symptomatic anemia Admitting Information Admitting Physician Requests: Nancy Deal DO Jul 30, 2017 13:12
[2017-07-30 13:16] LABS: AUTOMATED NEUTROPHIL # 4.6 TH/MM3 (1.8-7.7); BASOPHIL # 0.1 TH/MM3 (0-0.2); EOSINOPHIL # 0.4 TH/MM3 (0-0.4); LYMPH % 21.2 % (9.0-44.0); LYMPHOCYTE # 1.6 TH/MM3 (1.0-4.8); MEAN CELL VOLUME 94.1 FL (80.0-100.0); MEAN CORPUSCULAR HEMOGLOBIN 33.1 PG (27.0-34.0); MEAN CORPUSCULAR HGB CONC 35.2 % (32.0-36.0); MEAN PLATELET VOLUME 8.3 FL (7.0-11.0); MONO % 10.2 % (0.0-8.0); MONOCYTE # 0.8 TH/MM3 (0-0.9); NEUT % 61.6 % (16.0-70.0); PLATELET COUNT 260 TH/MM3 (150-450); RED BLOOD COUNT 2.02 MIL/MM3 (4.50-5.90); RED CELL DISTRIBUTION WIDTH 12.7 % (11.6-17.2); WHITE BLOOD COUNT 7.4 TH/MM3 (4.0-11.0)
--- NOTE | 2017-07-30 13:18 | PD ---
HPI Chief Complaint: Abnormal Results Time Seen by Provider: 12:48 Travel History International Travel<30 days: No Contact w/Intl Traveler<30days: No Traveled to known affect area: No History of Present Illness HPI Patient is a 47-year-old male presenting to emerge department for evaluation of abnormal labs. Patient states he was notified by Dr. Bess to come to the emergency department for a blood transfusion for hemoglobin of 6.4. Patient also reports bright red blood in his stools for the last week. He states he has a bowel movement every other day and when he does the toilet bowl appears filled blood. Patient reports taking a baby aspirin but denies any use of NSAIDs. He reports feeling dizzy and short of breath. He denies any chest pain , headache, falls, abdominal pain. Patient has a history of chronic kidney disease, he states he is preparing to start hemodialysis. He also has a history of hypertension, hyperlipidemia, GERD, type 2 diabetes and COPD. Symptom onset is unknown, symptoms are moderate to severe in nature. PFSH Past Medical History Anemia: Yes High Cholesterol: Yes Chest Pain: Yes COPD: Yes Diabetes: Yes GERD: Yes Hypertension: Yes Myocardial Infarction: Yes (nstemi) Renal Failure: Yes Past Surgical History Abdominal Surgery: Yes (appendix) Appendectomy: Yes Other Surgery: Yes Social History Alcohol Use: No Tobacco Use: No Substance Use: No Allergies-Medications (Allergen,Severity, Reaction): Coded Allergies: penicillin G (Unverified Adverse Reaction, Severe, WELTS, 11/19/16) Reported Meds & Prescriptions Reported Meds & Active Scripts Active Isosorbide Mononitrate ER (Isosorbide Mononitrate) 30 Mg Mik 30 Mg PO DAILY Bumetanide 2 Mg Tab 2 Mg PO BID Aspirin Low Strength (Aspirin) 81 Mg Chew 81 Mg CHEW DAILY Coreg (Carvedilol) 6.25 Mg Tab 6.25 Mg PO Q12HR Lipitor (Atorvastatin Calcium) 10 Mg Tab 10 Mg PO HS Ferosul (Ferrous Sulfate) 325 Mg (65 Mg Iron) Tablet 325 Mg PO BID Reported Omeprazole 20 Mg Tab 40 Mg PO DAILY Lantus Inj (Insulin Glargine) 1,000 Unit/10 Ml Vial 40 Units SQ HS Review of Systems Except as stated in HPI: all other systems reviewed are Neg HENT: Positive: Lightheadedness, No: Headaches Cardiovascular: No: Chest Pain or Discomfort, Tachycardia, Diaphoresis Respiratory: Positive: Shortness of Breath Gastrointestinal: No: Nausea, Abdominal Pain Musculoskeletal: No: Myalgias Neurologic: Positive: Dizziness Physical Exam Narrative GENERAL: Well-developed, well-nourished, alert male. Presenting in no acute distress. SKIN: Warm and dry. Pale HEAD: Atraumatic. Normocephalic. EYES: Pupils equal and round. No scleral icterus. No injection or drainage. Conjunctival pallor bilaterally. ENT: No nasal bleeding or discharge. Mucous membranes pink and moist. NECK: Trachea midline. No JVD. CARDIOVASCULAR: Regular rate and rhythm. RESPIRATORY: No accessory muscle use. Clear to auscultation. Breath sounds equal bilaterally. GASTROINTESTINAL: Abdomen soft, non-tender, nondistended. Hepatic and splenic margins not palpable. MUSCULOSKELETAL: Extremities without clubbing, cyanosis, or edema. No obvious deformities. RECTAL EXAM: No masses or tenderness, stool is brown. NEUROLOGICAL: Awake and alert. No obvious cranial nerve deficits. Motor grossly within normal limits. Five out of 5 muscle strength in the arms and legs. Normal speech. PSYCHIATRIC: Appropriate mood and affect; insight and judgment normal. Data Data Last Documented VS Vital Signs Date Time Temp Pulse Resp B/P (MAP) Pulse Ox O2 Delivery O2 Flow Rate FiO2 07/30/17 12:40 Room Air 07/30/17 12:33 97.4 82 16 135/67 (89) 99 Orders Orders Complete Blood Count With Diff (07/30/17 12:48) Comprehensive Metabolic Panel (07/30/17 12:48) Prothrombin Time / Inr (Pt) (07/30/17 12:48) Act Partial Throm Time (Ptt) (07/30/17 12:48) Type And Screen (07/30/17 12:48) Ecg Monitoring (07/30/17 12:48) Iv Access Insert/Monitor (07/30/17 12:48) Orthostatic Vital Signs (07/30/17 12:48) Oximetry (07/30/17 12:48) Sodium Chloride 0.9% Flush (Ns Flush) (07/30/17 13:00) Chest, Single Ap (07/30/17 ) Troponin I (07/30/17 13:09) Ckmb (Isoenzyme) Profile (07/30/17 13:09) Red Blood Cells (Rbc) (07/30/17 13:19) Blood Product Administration (07/30/17 13:19) Furosemide Inj (Lasix Inj) (07/30/17 13:30) Electrocardiogram (07/30/17 12:43) Admit Order (Ed Use Only) (07/30/17 14:20) CKMB (07/30/17 12:57) CKMB% (07/30/17 12:57) Labs Laboratory Tests Test 07/30/17 12:57 White Blood Count 7.4 TH/MM3 Red Blood Count 2.02 MIL/MM3 Hemoglobin 6.7 GM/DL Hematocrit 19.0 % Mean Corpuscular Volume 94.1 FL Mean Corpuscular Hemoglobin 33.1 PG Mean Corpuscular Hemoglobin Concent 35.2 % Red Cell Distribution Width 12.7 % Platelet Count 260 TH/MM3 Mean Platelet Volume 8.3 FL Neutrophils (%) (Auto) 61.6 % Lymphocytes (%) (Auto) 21.2 % Monocytes (%) (Auto) 10.2 % Eosinophils (%) (Auto) 6.0 % Basophils (%) (Auto) 1.0 % Neutrophils # (Auto) 4.6 TH/MM3 Lymphocytes # (Auto) 1.6 TH/MM3 Monocytes # (Auto) 0.8 TH/MM3 Eosinophils # (Auto) 0.4 TH/MM3 Basophils # (Auto) 0.1 TH/MM3 CBC Comment DIFF FINAL Differential Comment Prothrombin Time 9.8 SEC Prothromb Time International Ratio 1.0 RATIO Activated Partial Thromboplast Time 22.1 SEC Blood Urea Nitrogen 63 MG/DL Creatinine 4.53 MG/DL Random Glucose 115 MG/DL Total Protein 7.6 GM/DL Albumin 4.0 GM/DL Calcium Level 9.6 MG/DL Alkaline Phosphatase 71 U/L Aspartate Amino Transf (AST/SGOT) 15 U/L Alanine Aminotransferase (ALT/SGPT) 25 U/L Total Bilirubin 0.2 MG/DL Sodium Level 136 MEQ/L Potassium Level 4.2 MEQ/L Chloride Level 101 MEQ/L Carbon Dioxide Level 26.1 MEQ/L Anion Gap 9 MEQ/L Estimat Glomerular Filtration Rate 14 ML/MIN Total Creatine Kinase 155 U/L Troponin I LESS THAN 0.02 NG/ML MDM Medical Decision Making Medical Screen Exam Complete: Yes Emergency Medical Condition: Yes Medical Record Reviewed: Yes Interpretation(s) Last Impressions Chest X-Ray 07/30/17 0000 Signed Impressions: Service Date/Time: Sunday, July 30, 2017 13:18 - CONCLUSION: Stable cardiomegaly. No focal infiltrate or pulmonary vascular congestion. Rui Garduno MD Laboratory Tests Test 07/30/17 12:57 White Blood Count 7.4 TH/MM3 Red Blood Count 2.02 MIL/MM3 Hemoglobin 6.7 GM/DL Hematocrit 19.0 % Mean Corpuscular Volume 94.1 FL Mean Corpuscular Hemoglobin 33.1 PG Mean Corpuscular Hemoglobin Concent 35.2 % Red Cell Distribution Width 12.7 % Platelet Count 260 TH/MM3 Mean Platelet Volume 8.3 FL Neutrophils (%) (Auto) 61.6 % Lymphocytes (%) (Auto) 21.2 % Monocytes (%) (Auto) 10.2 % Eosinophils (%) (Auto) 6.0 % Basophils (%) (Auto) 1.0 % Neutrophils # (Auto) 4.6 TH/MM3 Lymphocytes # (Auto) 1.6 TH/MM3 Monocytes # (Auto) 0.8 TH/MM3 Eosinophils # (Auto) 0.4 TH/MM3 Basophils # (Auto) 0.1 TH/MM3 CBC Comment DIFF FINAL Differential Comment Prothrombin Time 9.8 SEC Prothromb Time International Ratio 1.0 RATIO Activated Partial Thromboplast Time 22.1 SEC Blood Urea Nitrogen 63 MG/DL Creatinine 4.53 MG/DL Random Glucose 115 MG/DL Total Protein 7.6 GM/DL Albumin 4.0 GM/DL Calcium Level 9.6 MG/DL Alkaline Phosphatase 71 U/L Aspartate Amino Transf (AST/SGOT) 15 U/L Alanine Aminotransferase (ALT/SGPT) 25 U/L Total Bilirubin 0.2 MG/DL Sodium Level 136 MEQ/L Potassium Level 4.2 MEQ/L Chloride Level 101 MEQ/L Carbon Dioxide Level 26.1 MEQ/L Anion Gap 9 MEQ/L Estimat Glomerular Filtration Rate 14 ML/MIN Vital Signs Date Time Temp Pulse Resp B/P (MAP) Pulse Ox O2 Delivery O2 Flow Rate FiO2 07/30/17 12:33 97.4 82 16 135/67 (89) 99 Differential Diagnosis Anemia of chronic disease versus GI bleed versus metabolic abnormality versus arrhythmia versus ACS versus nstemi versus other Narrative Course Patient is a 47-year-old male presenting to the emergency department for evaluation of abnormal labs. Patient's vital signs are stable. Labs and imaging ordered and pending. Hemoccult was positive for blood on exam. Initial EKG shows ST depression in the lateral leads, this was reviewed by my attending physician as well. This is new when compared to prior EKG. Cardiac enzymes were added to labs. is at bedside. CBC resulted with an H&H of of 6.7/19.0, 2 units of packed red blood cells ordered, 20 mg of Lasix IV between units. Chemistry with BUN and creatinine 63/4.53, stable when compared to prior in April 2017 Cardiac enzymes are negative 1 set Chest x-ray shows stable cardiomegaly. No focal infiltrate or pulmonary vascular congestion. Patient was advised on findings and plan of care. He is resting comfortably in no distress. His is at bedside. Discussed with residents who accepted admit under Dr. Weber. Admit orders placed. Patient was admitted for symptomatic anemia, chronic kidney disease and GI bleed. HemaPrompt Point of Care Fecal Specimen Occult Blood: Positive (Brown) Diagnosis Primary Impression: Symptomatic anemia Additional Impressions: Chronic kidney disease Qualified Codes: N18.5 - Chronic kidney disease, stage 5 GI bleed Qualified Codes: K92.2 - Gastrointestinal hemorrhage, unspecified Admitting Information Admitting Physician Requests: Observation Scripts Isosorbide Mononitrate ER (Isosorbide Mononitrate ER) 30 Mg Mik 30 MG PO DAILY for Prevent Chest Pain, #30 TAB 0 Refills Prov: Kristina Hidalgo MD R1 07/30/17 Condition: Stable Anahy Garcia Jul 30, 2017 13:18
[2017-07-30 13:19] LABS: HEMOGLOBIN 6.7 GM/DL (13.0-17.0)
[2017-07-30 13:25] LABS: PROTHROMBIN TIME - PATIENT 9.8 SEC (9.8-11.6)
[2017-07-30] MEDS ORDERED: FUROSEMIDE 20 MG/2 ML VIAL IV PUSH ONE (13:30)
[2017-07-30 13:34] LABS: AST (GOT) 15 U/L (15-37); BICARBONATE 26.1 MEQ/L (21.0-32.0); BLOOD UREA NITROGEN 63 MG/DL (7-18); CALCIUM 9.6 MG/DL (8.5-10.1); CHLORIDE 101 MEQ/L (98-107); CREATININE 4.53 MG/DL (0.60-1.30); GLOMERULAR FILTRATION RATE 14 ML/MIN (>89); GLUCOSE,RANDOM 115 MG/DL (74-106); SODIUM (NA) 136 MEQ/L (136-145)
[2017-07-30 13:35] LABS: ALT (GPT) 25 U/L (12-78)
[2017-07-30 13:37] LABS: ALKALINE PHOSPHATASE 71 U/L (45-117); TOTAL BILIRUBIN ADULT 0.2 MG/DL (0.2-1.0); TOTAL PROTEIN 7.6 GM/DL (6.4-8.2)
--- NOTE | 2017-07-30 14:02 | RADRPT ---
EXAM DATE/TIME: 07/30/2017 13:18 [facility] COMPARISON: CHEST SINGLE AP, April 09, 2017, 19:39. INDICATIONS : Short of breath. MEDICAL HISTORY : Hypertension. Diabetes mellitus type II. Myocardial infarction. SURGICAL HISTORY : Appendectomy. ENCOUNTER: Initial ACUITY: 1 day PAIN SCORE: 0/10 LOCATION: Bilateral chest FINDINGS: The heart remains enlarged. The pulmonary vascular pattern is normal. The lungs are clear. CONCLUSION: Stable cardiomegaly. No focal infiltrate or pulmonary vascular congestion. Rui Garduno MD on July 30, 2017 at 13:59 Board Certified Radiologist. This report was verified electronically.
--- NOTE | 2017-07-30 14:21 | HHI.HP ---
[facility] Service Family Medicine Primary Care Physician Non-Staff Admission Diagnosis SYMPTOMATIC ANEMIA Diagnoses: International Travel<30 Days: No Contact w/Intl Traveler<30days: No Known Affected Area: No History of Present Illness Patient is a 56 y/o M w/ hx of CHF, DM1, and CKD Stage 5 presenting w/ symptomatic anemia. Sent over by Dr. Bess from clinic for Hgb of 6.4 from blood work done yesterday. Has been more fatigued and lightheaded in the last week. Worse when he stands up from sitting. No syncope, palpitations, vision changes, hemoptysis , or black stools. Also has a little shortness of breath that is worse with walking. Follow with Dr. Bess for Chronic Kidney Disease (diagnosed in 12/2016 after an NSTEMI) and is preparing for HD. Has appointment for consultation to set up AV fistula. Following w/Cardiology (Dr. Wood in [place]) and Pulmonology. Dr. Solis is PCP. During his hospitalization for [place],ischemic cardiomyopathy resulting in CHF,and CKD, he developed respiratory distress from fluid overload , which was treated with diuretics, antibiotics, and thoracentesis. His echo at the time showed EF of 30-35%. Echo performed at the beginning of July showed EF of 40% per patient report. Has not had any hospitalizations since then and is currently taking Bumetanide 2 mg PO BID. Was taking Lisinopril at one point but discontinued because his blood pressure has been on the low side lately. Patient has an appointment at 11 am tomorrow and would like to be able to leave in time for appointment. (Kristina Hidalgo MD R1) Review of Systems Constitutional: DENIES: Diaphoretic episodes, Weight gain, Change in appetite Endocrine: DENIES: Polyuria, Polyphagia Eyes: DENIES: Eye inflammation, Eye pain Ears, nose, mouth, throat: DENIES: Tinnitus, Vertigo, Nasal discharge Respiratory: DENIES: Cough, Snoring, Hemoptysis Cardiovascular: DENIES: Chest pain, Lower Extremity Edema Genitourinary: DENIES: Urinary frequency, Urinary incontinence Musculoskeletal: DENIES: Joint pain, Muscle aches Integumentary: COMPLAINS OF: Rash (pruritic, no drainage or bleeding) Neurologic: DENIES: Headache, Poor Balance (Kristina Hidalgo MD R1) Past Family Social History Past Medical History Acute systolic (congestive) heart failure; last echo on 07/10. EF 40% Non-ST elevation (NSTEMI) myocardial infarction 12/2016 CKD Stage V Iron deficiency anemia DM type 1 Ischemic cardiomyopathy Shingles in April External and internal hemorrhoids Past Surgical History Appendectomy 7 years ago (Kristina Hidalgo MD R1) Allergies: Coded Allergies: penicillin G (Unverified Adverse Reaction, Severe, WELTS, 11/19/16) Family History Mom: DM1 Dad: none Social History Lives in [place] with his and two other children. No smoking or drinking. Former smoker of more than 20 years. No illicit or recreational drugs. (Kristina Hidalgo MD R1) Physical Exam Vital Signs Vital Signs Date Time Temp Pulse Resp B/P (MAP) Pulse Ox O2 Delivery O2 Flow Rate FiO2 07/30/17 12:40 Room Air 07/30/17 12:33 97.4 82 16 135/67 (89) 99 Physical Exam GENERAL: This is a pale gentleman resting quietly in bed. is at bedside. SKIN: Small, diffuse rash of dark pink hyperkeratotic papules. One is on the chest. Cool and dry. HEAD: Atraumatic. Normocephalic. EYES: Pupils equal round and reactive. Extraocular motions intact. ENT: Nose without bleeding, purulent drainage or septal hematoma. Throat without erythema, tonsillar hypertrophy or exudate. Uvula midline. Airway patent. NECK: Trachea midline. CARDIOVASCULAR: Regular rate and rhythm without murmurs, gallops, or rubs. RESPIRATORY: Clear to auscultation. Breath sounds equal bilaterally. No wheezes , rales, or rhonchi. GASTROINTESTINAL: Abdomen soft, non-tender, nondistended. No hepato-splenomegaly , or palpable masses. No guarding. MUSCULOSKELETAL: Extremities without clubbing, cyanosis, or edema. NEUROLOGICAL: Awake and alert. Motor and sensory grossly within normal limits. Normal speech. RECTAL: External hemorrhoid noted, not thrombosed, no bleeding. Laboratory Laboratory Tests Test 07/30/17 12:57 White Blood Count 7.4 Red Blood Count 2.02 Hemoglobin 6.7 Hematocrit 19.0 Mean Corpuscular Volume 94.1 Mean Corpuscular Hemoglobin 33.1 Mean Corpuscular Hemoglobin Concent 35.2 Red Cell Distribution Width 12.7 Platelet Count 260 Mean Platelet Volume 8.3 Neutrophils (%) (Auto) 61.6 Lymphocytes (%) (Auto) 21.2 Monocytes (%) (Auto) 10.2 Eosinophils (%) (Auto) 6.0 Basophils (%) (Auto) 1.0 Neutrophils # (Auto) 4.6 Lymphocytes # (Auto) 1.6 Monocytes # (Auto) 0.8 Eosinophils # (Auto) 0.4 Basophils # (Auto) 0.1 CBC Comment DIFF FINAL Differential Comment Prothrombin Time 9.8 Prothromb Time International Ratio 1.0 Activated Partial Thromboplast Time 22.1 Blood Urea Nitrogen 63 Creatinine 4.53 Random Glucose 115 Total Protein 7.6 Albumin 4.0 Calcium Level 9.6 Alkaline Phosphatase 71 Aspartate Amino Transf (AST/SGOT) 15 Alanine Aminotransferase (ALT/SGPT) 25 Total Bilirubin 0.2 Sodium Level 136 Potassium Level 4.2 Chloride Level 101 Carbon Dioxide Level 26.1 Anion Gap 9 Estimat Glomerular Filtration Rate 14 (Kristina Hidalgo MD R1) Result Diagram: 07/30/17 1257 07/30/17 1257 Imaging Last Impressions Chest X-Ray 07/30/17 0000 Signed Impressions: Service Date/Time: Sunday, July 30, 2017 13:18 - CONCLUSION: Stable cardiomegaly. No focal infiltrate or pulmonary vascular congestion. Rui Garduno MD (Kristina Hidalgo MD R1) Caprini VTE Risk Assessment Caprini VTE Risk Assessment: Mod/High Risk (score >= 2) Caprini Risk Assessment Model Point Value = 1 Point Value = 2 Point Value = 3 Point Value = 5 Age 41-60 Minor surgery BMI > 25 kg/m2 Swollen legs Varicose veins or History of unexplained or recurrent spontaneous Oral contraceptives or hormone replacement Sepsis (< 1 month) Serious lung disease, including pneumonia (< 1 month) Abnormal pulmonary function Acute myocardial infarction Congestive heart failure (< 1 month) History of inflammatory bowel disease Medical patient at bed rest Age 61-74 Arthroscopic surgery Major open surgery (> 45 min) Laparoscopic surgery (> 45 min) Malignancy Confined to bed (> 72 hours) Immobilizing plaster cast Central venous access Age >= 75 History of VTE Family history of VTE Factor V Leiden Prothrombin [id number] Lupus anticoagulant Anticardiolipin antibodies Elevated serum homocysteine Heparin-induced thrombocytopenia Other congenital or acquired thrombophilia Stroke (< 1 month) Elective arthroplasty Hip, pelvis, or leg fracture Acute spinal cord injury (< 1 month) Prophylaxis Regimen Total Risk Factor Score Risk Level Prophylaxis Regimen 0-1 Low Early ambulation 2 Moderate Order ONE of the following: *Sequential Compression Device (SCD) *Heparin 5000 units SQ BID 3-4 Higher Order ONE of the following medications: *Heparin 5000 units SQ TID *Enoxaparin/Lovenox 40 mg SQ daily (WT < 150 kg, CrCl > 30 mL/min) *Enoxaparin/Lovenox 30 mg SQ daily (WT < 150 kg, CrCl > 10-29 mL/min) *Enoxaparin/Lovenox 30 mg SQ BID (WT < 150 kg, CrCl > 30 mL/min) AND/OR *Sequential Compression Device (SCD) 5 or more Highest Order ONE of the following medications: *Heparin 5000 units SQ TID (Preferred with Epidurals) *Enoxaparin/Lovenox 40 mg SQ daily (WT < 150 kg, CrCl > 30 mL/min) *Enoxaparin/Lovenox 30 mg SQ daily (WT < 150 kg, CrCl > 10-29 mL/min) *Enoxaparin/Lovenox 30 mg SQ BID (WT < 150 kg, CrCl > 30 mL/min) AND *Sequential Compression Device (SCD) (Kristina Hidalgo MD R1) Assessment and Plan Assessment and Plan Patient is a 47 y/o w/hx of CKD stage 5 presenting w/symptomatic anemia, admitted to obs. Plan to transfuse 2 units. Will monitor overnight. 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 Code Status FULL (Kristina Hidalgo MD R1) Attending Attestation Patient seen and examined. Discussed with Dr. Hidalgo. Agree with physical findings , assessment and plan as documented. (Prevatte,Arnoldo Fan Jr., MD) Problem List: (1) Symptomatic anemia ICD Codes: D64.9 - Anemia, unspecified Status: Acute Plan: Hgb 6.7 on admission Normocytic Likely due to anemia of chronic disease No suspicion for active bleeding at this time Plan for transfusion 2 units today w/Lasix tx Monitor for fluid overload Obtain post-transfusion HH CBC tomorrow morning (2) Iron deficiency anemia ICD Codes: D50.9 - Iron deficiency anemia, unspecified Plan: Con't ferrous sulfate BID (3) Chronic kidney disease ICD Codes: N18.9 - Chronic kidney disease, unspecified Status: Acute Plan: BUN/Cr is 63/4.53 GFR 14 The above seems to be around his baseline based on previous admissions Planning to start HD soon Will monitor BMP tomorrow (4) Hemorrhoids ICD Codes: K64.9 - Unspecified hemorrhoids Plan: Likely source of hemoccult positive Will need to follow up w/PCP for further management and monitoring (5) Ischemic cardiomyopathy ICD Codes: I25.5 - Ischemic cardiomyopathy Plan: Associated w/CHF Con't isosorbide mononitrate 30 mg daily Carvedilol 6.25 mg BID Bumetanide 2 mg BID Atorvastatin 10 mg PO HS Aspirin 81 mg chew (6) Type 1 diabetes ICD Codes: E10.9 - Type 1 diabetes mellitus without complications Plan: On lantus and sliding scale at home Start Low dose sliding scale (7) CHF (congestive heart failure) ICD Codes: I50.9 - Heart failure, unspecified Plan: See above (8) Rash ICD Codes: R21 - Rash and other nonspecific skin eruption Plan: Pruritic hyperkeratotic papules that is often related to underlying systemic disease, in this case renal failure Recommend antipruritic therapy with oral antihistamines and lotions. (9) FEN Plan: Fluids: PO Electrolytes: none Nutrition: renal diet DVT prophy: hold for now due to anemia and hemoccult positive (Kristina Hidalgo MD R1) Problem Qualifiers (1) Chronic kidney disease: Qualified Codes: N18.5 - Chronic kidney disease, stage 5 (2) Type 1 diabetes: Qualified Codes: E10.8 - Type 1 diabetes mellitus with unspecified complications Kristina Hidalgo MD R1 Jul 30, 2017 14:21 Arnoldo Carrillo Jr., MD Jul 30, 2017 16:46
[2017-07-30] MEDS ORDERED: MAGNESIUM HYDROXIDE SUSP 30 ML CUP PO PRN (15:15)
[2017-07-30] MEDS ORDERED: BISACODYL 10 MG SUPP RECTAL PRN (15:15)
[2017-07-30] MEDS ORDERED: SODIUM CHLORIDE 0.9% FLUSH 10 ML FLUSH IV FLUSH PRN (15:15)
[2017-07-30] MEDS ORDERED: NALOXONE HCL 0.4 MG/ML AMP IV PUSH PRN (15:15)
[2017-07-30] MEDS ORDERED: SENNOSIDES 8.6 MG TAB PO PRN (15:15)
[2017-07-30] MEDS ORDERED: ACETAMINOPHEN 325 MG TAB PO PRN (15:15)
[2017-07-30] MEDS ORDERED: ISOS30TA3 PO (15:28)
[2017-07-30 15:29] VITALS: BP 140/63; PULSE 68; RESP 24; O2SAT 98
[2017-07-30 15:51] LABS: TROPONIN I LESS THAN 0.02 NG/ML (0.02-0.05)
[2017-07-30 18:06] VITALS: BP 139/65; PULSE 75; RESP 18; TEMP 98.1; O2SAT 100
[2017-07-30] MEDS: INSULIN ASPART SUPPLEMENTAL SCALE SQ SCH ×2 (19:04→22:33)
[2017-07-30] MEDS ORDERED: ATORVASTATIN 10 MG TAB PO SCH (21:00)
[2017-07-30 21:21] VITALS: BP_SYST 128; BP_SYST 132; BP_SYST 135; BP_DIAS 64; BP_DIAS 65; BP_DIAS 69; PULSE 83; RESP 18; TEMP 98.3; O2SAT 97
[2017-07-30] MEDS: CARVEDILOL 6.25 MG TAB PO SCH (21:27)
[2017-07-30] MEDS: FERROUS SULFATE 325 MG (65 MG ELEMENTAL IRON) TAB PO SCH (21:27)
[2017-07-30] MEDS: BUMETANIDE 1 MG TAB PO SCH (21:27)
[2017-07-30] MEDS: SODIUM CHLORIDE 0.9% FLUSH 10 ML FLUSH IV FLUSH SCH (21:28)
[2017-07-31] VITALS (7 sets, daily range): BP systolic 143–163; BP diastolic 74–82; PULSE 15–81; RESP 16–18; TEMP 97.7–98.3; O2SAT 99–100
[2017-07-31] MEDS ORDERED: FUROSEMIDE 20 MG/2 ML VIAL IV PUSH ONE (07:00)
--- NOTE | 2017-07-31 07:10 | HHI.FPPN ---
Subjective Remarks Patient doing well today. Vitals stable overnight. Patient started on transfusion at 2 am last night, was still receiving 2nd transfusion this morning. No complaints overnight, no chest pain or shortness of breath. Feeling well, ambulating adequately. Objective Vitals Vital Signs Date Time Temp Pulse Resp B/P (MAP) Pulse Ox O2 Delivery O2 Flow Rate FiO2 07/31/17 06:52 98.1 75 18 163/74 100 07/31/17 06:20 98.3 76 18 143/74 100 07/31/17 06:02 98.3 76 18 143/74 100 07/31/17 03:49 Nasal Cannula 2.00 07/31/17 02:27 97.7 81 18 156/82 100 07/31/17 01:58 97.7 79 18 160/78 100 07/30/17 21:21 98.3 83 18 132/65 (87) 97 135/69 (91) 128/64 (85) 07/30/17 18:06 98.1 75 18 139/65 (89) 100 07/30/17 17:29 07/30/17 15:29 68 24 140/63 (88) 98 Room Air 07/30/17 12:40 Room Air 07/30/17 12:33 97.4 82 16 135/67 (89) 99 I/O 07/30/17 07/30/17 07/30/17 07/31/17 07/31/17 07/31/17 07:00 15:00 23:00 07:00 15:00 23:00 Intake Total 1170 ml Output Total 2395 ml Balance -1225 ml Intake Oral 740 ml Packed Cells 400 ml Blood Product IV Normal Saline Flush 30 ml Output Urine Total 2395 ml Result Diagram: 07/30/17 1257 07/30/17 1257 Objective Remarks O. CONSTITUTIONAL/GEN: normally nourished, improved complexion (less pale) since yesterday. EYES: conjunctiva normal, PERRLA, EOMI. ENT: Mouth and pharynx normal. LUNGS: clear A-P, respiratory effort is normal. CARDIOVASCULAR: RR without murmur or gallop. No significant edema. GI/ABD: soft without masses, without organomegaly. NEURO: No focal deficits. SKIN: color normal. HEME/LYMPH: no bruising, petechia MUSC: Extremities are normal in appearance. PSYCH/MENTAL STATUS: Alert and oriented. A/P Assessment and Plan Patient is a 47 y/o w/hx of CKD stage 5 presenting w/symptomatic anemia, admitted to obs. S/p 2 units PRBCs. Did well overnight. Discharge today so patient can make his consultation for hemodialysis. Problem List: (1) Symptomatic anemia ICD Codes: D64.9 - Anemia, unspecified Status: Acute Plan: Hgb 6.7 on admission Normocytic Likely due to anemia of chronic disease Transfusion of 2 units w/Lasix tx in between No signs of fluid overload, good output (I/O 1.1/2.3) Obtain post-transfusion HH before discharge. Hgb this AM after 1 unit was 8.2 (2) Iron deficiency anemia ICD Codes: D50.9 - Iron deficiency anemia, unspecified Status: Chronic Plan: Con't ferrous sulfate BID (3) Chronic kidney disease ICD Codes: N18.9 - Chronic kidney disease, unspecified Status: Chronic Plan: BUN/Cr is 63/4.53 GFR 14 The above seems to be around his baseline based on previous admissions BMP stable this AM Planning to start HD soon (4) Hemorrhoids ICD Codes: K64.9 - Unspecified hemorrhoids Status: Chronic Plan: Chronic Will need to follow up w/PCP for further management and monitoring (5) Ischemic cardiomyopathy ICD Codes: I25.5 - Ischemic cardiomyopathy Status: Chronic Plan: Associated w/CHF Con't isosorbide mononitrate 30 mg daily Carvedilol 6.25 mg BID Bumetanide 2 mg BID Atorvastatin 10 mg PO HS Aspirin 81 mg chew (6) Type 1 diabetes ICD Codes: E10.9 - Type 1 diabetes mellitus without complications Status: Chronic Plan: On lantus and sliding scale at home (7) CHF (congestive heart failure) ICD Codes: I50.9 - Heart failure, unspecified Status: Chronic Plan: See above (8) Rash ICD Codes: R21 - Rash and other nonspecific skin eruption Status: Chronic Plan: Pruritic hyperkeratotic papules that is often related to underlying systemic disease, in this case renal failure Recommend antipruritic therapy with oral antihistamines and lotions. (9) FEN Plan: Fluids: PO Electrolytes: none Nutrition: renal diet Problem Qualifiers (1) Chronic kidney disease: Qualified Codes: N18.5 - Chronic kidney disease, stage 5 (2) Type 1 diabetes: Qualified Codes: E10.8 - Type 1 diabetes mellitus with unspecified complications Kristina Hidalgo MD R1 Jul 31, 2017 07:10
[2017-07-31 07:53] LABS: AUTOMATED NEUTROPHIL # 5.6 TH/MM3 (1.8-7.7); BASOPHIL % 0.6 % (0.0-2.0); EOSINOPHIL # 0.3 TH/MM3 (0-0.4); EOSINOPHIL % 4.5 % (0.0-4.0); HEMATOCRIT 23.1 % (39.0-51.0); HEMOGLOBIN 8.2 GM/DL (13.0-17.0); LYMPH % 14.2 % (9.0-44.0); LYMPHOCYTE # 1.1 TH/MM3 (1.0-4.8); MEAN CELL VOLUME 91.2 FL (80.0-100.0); MEAN CORPUSCULAR HEMOGLOBIN 32.4 PG (27.0-34.0); MEAN CORPUSCULAR HGB CONC 35.6 % (32.0-36.0); MEAN PLATELET VOLUME 8.3 FL (7.0-11.0); MONO % 9.4 % (0.0-8.0); MONOCYTE # 0.7 TH/MM3 (0-0.9); NEUT % 71.3 % (16.0-70.0); PLATELET COUNT 236 TH/MM3 (150-450); RED BLOOD COUNT 2.54 MIL/MM3 (4.50-5.90); RED CELL DISTRIBUTION WIDTH 14.4 % (11.6-17.2); WHITE BLOOD COUNT 7.8 TH/MM3 (4.0-11.0)
[2017-07-31 08:18] LABS: BICARBONATE 26.7 MEQ/L (21.0-32.0); CALCIUM 9.3 MG/DL (8.5-10.1); CREATININE 4.52 MG/DL (0.60-1.30)
[2017-07-31] MEDS ORDERED: ISOSORBIDE MONONITRATE 30 MG CR TAB (IMDUR) PO SCH (09:00)
[2017-07-31] MEDS ORDERED: ASPIRIN 81 MG CHEW TAB CHEW SCH (09:00)
[2017-07-31] MEDS: FERROUS SULFATE 325 MG (65 MG ELEMENTAL IRON) TAB PO SCH (09:26)
[2017-07-31] MEDS: BUMETANIDE 1 MG TAB PO SCH (09:26)
[2017-07-31] MEDS: CARVEDILOL 6.25 MG TAB PO SCH (09:26)
[2017-07-31] MEDS: INSULIN ASPART SUPPLEMENTAL SCALE SQ SCH (09:27)
[2017-07-31] MEDS: SODIUM CHLORIDE 0.9% FLUSH 10 ML FLUSH IV FLUSH SCH (09:27)
--- NOTE | 2017-07-31 09:46 | HHI.DCPOC ---
Discharge Care Plan Diagnosis: (1) Symptomatic anemia Goals to Promote Your Health * To prevent worsening of your condition and complications * To maintain your health at the optimal level Directions to Meet Your Goals Take your medications as prescribed Follow your dietary instruction Follow activity as directed Keep your appointments as scheduled Take your immunizations and boosters as scheduled If your symptoms worsen call your PCP, if no PCP go to Urgent Care Center or Emergency Room Smoking is Dangerous to Your Health. Avoid second hand smoke Call the 24-hour hour crisis hotline for domestic abuse at Kristina Hidalgo MD R1 Jul 31, 2017 09:46
[2017-07-31 10:28] LABS: HEMATOCRIT 25.7 % (39.0-51.0)
--- NOTE | 2017-07-31 16:28 | EKG ---
Date Performed: 07/30/2017 Time Performed: 12:43:18 PTAGE: 47 years EKG: Sinus rhythm ST DEVIATION AND MODERATE T-WAVE ABNORMALITY, CONSIDER LATERAL ISCHEMIA ST DEVIATION AND MODERATE T- WAVE ABNORMALITY, CONSIDER INFERIOR ISCHEMIA ABNORMAL ECG PREVIOUS TRACING : 04/09/2017 18.55 Since the previous tracing, no significant change noted DOCTOR: Tej Jacobs Interpretating Date/Time 07/31/2017 16:25:35
== END 2017-07-31 11:01 | disposition home or self-care (01) ==
LOC: NEPC 12:29 → NEDA 14:22 → NEPHCDU 17:29
PROVIDERS: ADMIT Family Medicine; ATTEND Family Medicine
DX: D50.9 Iron deficiency anemia, unspecified (principal); I13.2 Hypertensive heart and chronic kidney disease with heart failure and with stage 5 chronic kidney disease, or end stage renal disease; N18.6 End stage renal disease; I50.22 Chronic systolic (congestive) heart failure; E10.22 Type 1 diabetes mellitus with diabetic chronic kidney disease; I25.2 Old myocardial infarction; K64.9 Unspecified hemorrhoids; E78.5 Hyperlipidemia, unspecified; J44.9 Chronic obstructive pulmonary disease, unspecified; K21.9 Gastro-esophageal reflux disease without esophagitis; L29.9 Pruritus, unspecified; R94.31 Abnormal electrocardiogram [ECG] [EKG]; Z79.4 Long term (current) use of insulin; Z79.82 Long term (current) use of aspirin; Z79.899 Other long term (current) drug therapy; Z87.891 Personal history of nicotine dependence
CPT/HCPCS: 36430; 71045; 80048; 80053; 82550; 82552; 82948; 84484; 85014; 85018; 85025; 85610; 85730; 86850; 86900; 86901; 86920; 93005; 99285; G0378; J1815; J1940; P9016